=== PATIENT | female | born 1935 | race Caucasian/White ===

== ENCOUNTER 2019-12-07 09:41 | Observation (INO) | payer MEDICARE, MEDICAID, SELFPAY ==
[2019-12-07] VITALS (10 sets, daily range): BP systolic 102–137; BP diastolic 48–71; PULSE 66–86; RESP 12–18; TEMP 36.7–36.8; O2SAT 95–98; BMI 26.7
--- NOTE | 2019-12-07 | CT_ITS ---
EXAMINATION: CT HEAD W/O IV CONTRAST CT CERVICAL SPINE W/O IV CONTRAST CLINICAL INFORMATION: Syncope COMPARISON: Head CT from 02/11/2019. TECHNIQUE: Head - Contiguous axial imaging of the head was performed from the skull base to the vertex without the administration of intravenous contrast, and axial images are reconstructed at 2 mm and 5 mm slice thickness. Cervical spine - A volumetric, helical CT acquisition of the cervical spine was obtained without contrast; in addition to the standard set of axial images, multiplanar reformatted images were provided in the coronal and sagittal imaging planes. This CT examination was performed using dose optimization techniques as appropriate, variously including the following: *Automated exposure control *Adjustment of mA and/or kV according to patient size (this includes techniques or standardized protocols for targeted exams where dose is matched to indication/reason for exam; i.e. extremities or head) *Use of iterative reconstruction technique DLP: 673 mGy-cm for the head CT 310 mGy-cm for the cervical spine CT FINDINGS: HEAD: No intracranial hemorrhage, extra-axial fluid collection, focal mass effect or midline shift. The hoyt-white matter differentiation is maintained. No evidence of an acute major vascular territory infarction. Chronic small vessel ischemic changes of supratentorial white matter. Chronic, moderate atrophy of cerebral and cerebellar hemispheres with commensurate prominence of the ventricles and sulci. Atherosclerotic calcification of cavernous carotid arteries. The calvarium is intact. Mild, incomplete right mastoid effusion is noted. Otherwise, mastoid air cells are well-aerated. The visualized paranasal sinuses are clear. Incidentally noted is left-sided nasal septal deviation with left-sided septal spur. Lenses have been extracted from the globes of each orbit. Chronic arthritic deformity, old mandibular condylar erosions, of bilateral temporomandibular joints. CERVICAL SPINE: The cervical spine has normal curvature. No acute abnormalities. The craniocervical junction is normal. The occipital condyles, dens and atlantodental articulation are intact. Degenerative subarticular sclerosis and osseous spurring at the atlantodental articulation. The vertebral body heights are maintained. No fractures in the anterior or posterior elements. No prevertebral soft tissue swelling. Moderate degenerative disc disease of C5-C6 and severe degenerative disease of C6-C7. Minimal degenerative anterolisthesis of C6 on C7. Otherwise, cervical vertebra have normal alignment. 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 The facet joints are ankylosed on the left at C5-C6 and on the right at C2-C3. No significant stenosis of the central spinal canal. No spinal hematoma or focal fluid collection in the visualized neck. Thyroid gland is unremarkable. There is symmetric appearance of pleural-based scarring at lung apices. IMPRESSION: * No hemorrhage or other acute intracranial pathology compared to 02/11/2019. * Chronic small vessel ischemic changes of supratentorial white matter. * Chronic, diffuse atrophy of the cerebral and cerebellar hemispheres. * No fractures in the degenerated cervical spine.
--- NOTE | 2019-12-07 | XR_ITS ---
EXAMINATION: XR CHEST CLINICAL INFORMATION: Syncope COMPARISON: 02/11/2019 TECHNIQUE: 2 views of the chest were obtained. FINDINGS: Lungs are well-inflated and clear. No pulmonary edema, consolidation or pleural effusion. No pneumothorax. Cardiac silhouette is normal in size. The hilar contours are normal. Bones appear to be diffusely osteoporotic. IMPRESSION: No acute pulmonary disease.
--- NOTE | 2019-12-07 10:25 | PC.NURSE ---
SPOKE WITH DAUGHTER, AWILDA, WHO WITNESSED SYNCOPE. STATES PT WAS STANDING UP AT BATHROOM SINK CLEANING SELF OFF AFTER EPISODE OF DIARRHEA, AND PT SAID SHE FELT LIKE SHE WAS GOING TO FAINT; DAUGHTER THEN ASSISTED PT TO SITTING POSITION AND PT HAD BRIEF EPISODE OF PASSING OUT, EYES ROLLING BACK IN HEAD AND NOT RESPONDING FOR A FEW SECONDS TWICE. STATES PT WAS PALE AT TIME. PT DID NOT FALL OR HIT HEAD.
--- NOTE | 2019-12-07 10:30 | PC.NURSE ---
DAUGHTER, AWILDA SINGH [phone]
--- NOTE | 2019-12-07 10:32 | PC.NURSE ---
PT NOW AWAKE AND ALERT. ORIENTED TO SELF AND PLACE, NOT TO YEAR/MONTH; DAUGHTER STATES THIS IS BASELINE D/T DEMENTIA. NEUROS INTACT. SKIN WPD. REPSIRATIONS EVEN AND NON LABORED. DENIES ANY PAIN OR DISCOMFORT. NSR ON MONITOR. VSS. IV ACCESS IN PLACE. MARYJANE AREA, LEGS, FEET CLEANED OF LARGE AMOUNT OF BROWN SEMI-FORMED STOOL. (DAUGHTER STATES PT WAS INCONTINENT AND WAS ATTEMPTING TO WASH STOOL OFF WHEN SHE SYNCOPIZED. ) AWAITING INITIAL MD CHOPRA.
--- NOTE | 2019-12-07 10:42 | ECG_ITS ---
Test Reason : SYNCOPE Blood Pressure : / mmHG Vent. Rate : 069 BPM Atrial Rate : 069 BPM P-R Int : 178 ms QRS Dur : 088 ms QT Int : 394 ms P-R-T Axes : 014 -08 070 degrees QTc Int : 422 ms Normal sinus rhythm Left axis deviation Nonspecific T wave abnormality Abnormal ECG When compared with ECG of 11-FEB-2019 09:26, Nonspecific T wave abnormality now evident in Anterolateral leads Referred By: Chris Herrera Electronically Signed By:JOSHUA CARDENAS MD
--- NOTE | 2019-12-07 11:18 | PC.NURSE ---
PT'S DAUGHTER CALLED AND EXPRESSED CONCERN THAT SHE NO LONGER CAN TAKE CARE OF HER MOTHER AT HOME AND REQUESTING SHE BE PLACED AT A SNF IF MEDICALLY CLEARED.
[2019-12-07 11:26] LABS: MANUAL DIFF FLAG NO
[2019-12-07 11:29] LABS: Basophils Percent Auto 0.2 % (0-2); Eosinophils Absolute Auto 0.1 X10*3/uL (0.0-0.4); Eosinophils Percent Auto 0.8 % (0-4); Hematocrit 42.3 % (37-47); Imm Gran Abs Auto 0.02 X10*3/uL (0.00-0.03); Imm Gran Pct Auto 0.2 % (0.0-0.4); Lymphocytes Absolute Auto 1.2 X10*3/uL (1.2-4.9); Lymphocytes Percent Auto 13.4 % (20-40); Mean Corpuscular HGB Conc 33.1 g/dl (31.0-35.0); Mean Corpuscular Hemoglobin 33.3 pg (27.0-33.0); Mean Corpuscular Volume 100.5 fL (80-98); Mean Platelet Volume 11.2 fL (9.4-12.3); Monocytes Absolute Auto 0.6 X10*3/uL (0.1-1.2); Monocytes Percent Auto 6.7 % (2-11); Neutrophils Absolute Auto 7.1 X10*3/uL (2.0-8.3); Neutrophils Percent Auto 78.7 % (45-73); Platelet Count 193 X10*3/uL (160-400); Red Blood Count 4.21 X10*6/uL (4.20-5.50); Red Cell Distribution Width 12.5 % (11.0-16.0); White Blood Count 9.1 X10*3/uL (4.8-10.8)
[2019-12-07 11:48] LABS: Anion Gap 13 (12-20); Blood Urea Nitrogen 21 mg/dL (9-16); Calcium 8.9 mg/dL (8.4-10.2); Carbon Dioxide 25 mmol/L (22-29); Chloride 108 mmol/L (96-108); Creatinine Clr Calc Pharmacy 46.6; Estimated Glomerular Filt Rate 58; Glucose Random 99 mg/dL (60-115); Potassium 4.5 mmol/l (3.3-5.1); Sodium 141 mmol/L (135-145)
[2019-12-07 11:49] LABS: Alanine Aminotransferase 10 U/L (0-31); Albumin Level 4.1 g/dL (3.5-5.0); Alkaline Phosphatase 95 U/L (39-117); Aspartate Amino Transferase 13 U/L (5-31); Bilirubin Direct 0.3 mg/dL (0.0-0.5); Bilirubin Total 0.6 mg/dL (0.0-1.0); Magnesium 2.1 mg/dL (1.6-2.6); Total Protein 6.4 g/dL (6.5-8.0)
--- NOTE | 2019-12-07 11:50 | MHC.CM.ED ---
Patient came to ER due to syncope. Received notification from ROBERT Mathews that daughter, Lolly doesn't feel patient can safely be home any more. Spoke with Lolly via telephone via telephone at [phone]. Patient was discharged from [facility] on [address] in February. At that time, 24 hour care was recommended. Lolly has essentially been living with patient. Patient also receives 40 hours of home health aides through [facility] via [employer] and [facility] from [facility]. Lolly is requesting referral to [facility]. [facility]. ER work up is still pending.
[2019-12-07 11:56] LABS: Troponin-I High Sensitivity < 3.5 ng/L (<3.5-17.0)
--- NOTE | 2019-12-07 11:58 | MHC.CM.ED ---
[facility] doesnot have a bed available at this time. Referral being broadcasted in [facility]. Continue to monitor for d/c needs.
--- NOTE | 2019-12-07 15:21 | ED.SYNCOPE ---
HPI - Syncope General Chief Complaint: Syncope Stated Complaint: SYNCOPE Time Seen by Provider: 12/07/19 11:03 Source: patient and family (Daughter by phone with Nurse Bisi) Mode of arrival: ambulatory Limitations: altered mental status (dementia at baseline ) History of Present Illness HPI narrative: 84yoF c PMHx of dementia presenting to the ED via EMS after a Witnessed syncopal episode by daughter at home prior to arrival with loss of consciousness. No head injury. Currently on a baby aspirin no other blood thinners. Patient is a poor historian due to her baseline dementia therefore the nurse contacted the daughter and the daughter reported that the patient had an episode of incontinence and she was washing up at the sink when she told her daughter that she fell as she was about to pass out therefore the daughter helped her down to the ground and this is when her eyes rolled back and she lost consciousness for few seconds. The daughter called the ambulance and the patient had an another episode of syncope with LOC. No head injury. She was hypotensive for EMS at 70s over 40s. Otherwise the patient denies any additional complaints or concerns at this time. Daughter reports the patient is at baseline for her dementia. Related Data Home Medications Medication Instructions Recorded Confirmed aspirin 81 mg PO DAILY 12/07/19 12/07/19 cholecalciferol (vitamin D3) 25 mcg PO DAILY 12/07/19 12/07/19 [Vitamin D3] Allergies Allergy/AdvReac Type Severity Reaction Status Date / Time No Known Allergies Allergy Verified 12/07/19 10:00 [No Known Allergies*] Review of Systems Review of Systems: Yes all other systems are reviewed and are negative Constitutional: Constitutional: Reports as per HPI, Denies anorexia, Denies body ache(s), Denies chills, Denies excessive sweating, Denies fatigue, Denies fever(s), Denies frequent falls, Denies headache(s), Denies lethargy, Denies malaise, Denies night sweats, Denies poor appetite, Denies weakness, Denies weight gain and Denies weight loss Eyes: Eyes: Reports as per HPI, Denies blurry vision and Denies change in vision ENT: Reports as per HPI, Reports Normal hearing present, Denies dizziness, Denies headache(s) and Denies neck pain Cardiovascular: Cardiovascular: Reports as per HPI, Denies chest pain, Denies chest pain at rest, Denies chest pain with activity, Denies diaphoresis, Reports syncope, Denies rapid heart rate, Denies pedal edema, Denies edema, Denies irregular heart rhythm, Denies claudication, Reports lightheadedness, Reports Loss of Consciousness, Denies radiating jaw, neck or arm pain, Denies palpitations, Denies dyspnea, Denies dyspnea on exertion, Denies orthopnea and Denies paroxysmal nocturnal dyspnea Respiratory: Respiratory: Reports as per HPI, Denies cough, Denies dyspnea and Denies dyspnea on exertion Gastrointestinal: Gastrointestinal: Reports as per HPI, Denies abdominal pain, Denies melena, Denies hematochezia, Denies coffee ground emesis, Denies constipation, Denies heartburn, Denies diarrhea, Denies loose stools, Denies nausea, Denies vomiting and Denies hematemesis Genitourinary: Genitourinary: Reports as per HPI, Denies hematuria, Denies urinary frequency, Denies genital lesions, Denies dysuria, Denies flank pain, Denies urinary hesitancy and Denies urinary urgency Musculoskeletal: Musculoskeletal: Reports as per HPI, Denies neck pain, Denies numbness and Denies tingling Integumentary/Breasts: Skin/Breast: Reports as per HPI Neurologic: Reports as per HPI, Reports Normal hearing present, Reports confusion (at baseline per daughter due to dementia ), Denies dizziness, Reports syncope, Denies frequent falls, Denies headache(s), Denies focal weakness, Denies numbness, Denies convulsions, Denies seizure-like activity, Denies Sensory deficit (Neuro), Denies tingling, Denies paresthesias and Denies weakness Psychiatric: Psychiatric: Reports as per HPI and Reports confusion (at baseline per daughter due to dementia ) Endocrine: Endocrine: Reports as per HPI, Denies excessive sweating, Denies fatigue and Denies palpitations Hematologic/Lymphatic: Hematologic/Lymphatic: Reports as per HPI Allergic/Immunologic: Allergic/Immunologic: Reports as per HPI [facility] Past Medical History Attestation statement: The following information was validated with the patient. Medical History (Updated 12/07/19 @ 17:34 by Kassie Burns NP) Dementia Right shoulder injury Social History Social History Alcohol intake: former Smoking Status: Former smoker Smoked in Last 30 Days: No Use of substances other than those prescribed or required for medical reasons: No Advance Directives: No Advance Directives Information Provided: Yes Physical Exam Vital Signs: Vital Signs: Vital Signs Temp Pulse Resp BP Pulse Ox 12/07/19 13:50 86 133/53 L 12/07/19 13:47 83 134/71 12/07/19 13:46 71 122/59 L 12/07/19 12:33 98.1 F 74 18 119/53 L 97 12/07/19 10:10 97 12/07/19 10:01 98.0 F 69 16 116/48 L 97 Body Mass Index 26.7 Const: General: cooperative, healthy appearing, comfortable, no acute distress, well developed, alert, awake, Physically active and confusion (at baseline per daughter due to dementia ) Nutritional Appearance: average body habitus and well nourished Orientation/consciousness: oriented to person, oriented to place, No oriented to time and confusion (at baseline per daughter due to dementia ) Limitations: altered mental status (dementia ) HENMT: Head: Yes normal to inspection, Yes No palpable skull fracture present, Yes normocephalic and Yes atraumatic Ears: hearing grossly normal bilaterally General nose exam: Normal external nose present Face and sinus: Yes normal facial exam Mouth: moist mucous membranes Eyes: General: appearance normal, both eyes and all related structures Visual Bennett: normal visual bennett by confrontation Alignment and Position: alignment normal Periorbital: periorbital findings normal Eyelids: Yes eyelids normal Conjunctivae: conjunctivae normal Sclerae: sclerae normal Pupils: Equal, round and reactive pupils present EOM: EOMs intact bilaterally Neck: Neck: Yes normal visual inspection, Yes full ROM, Yes no lymphadenopathy, Yes no meningeal signs, Yes trachea midline and Yes supple Chest: Chest palpation & inspection: normal inspection of the chest Resp: Effort & Inspection: normal respiratory effort and able to speak in complete sentences Auscultation: clear to auscultation bilaterally, no crackles, no rales, no rhonchi and no wheezes Cardio: Rate: regular rate Rhythm: regular rhythm Heart sounds: S1 normal heart sound present and S2 normal heart sound present Peripheral pulses: Peripheral pulses 2+ throughout GI: Inspection: Yes normal to inspection Palpation (GI): Soft to palpation, nontender and No hepatosplenomegaly present Percussion: Yes normal to percussion Auscultation: normal bowel sounds : General: Yes no CVA tenderness Back/Spine/Pelvis: Back: no CVA tenderness Cervical Spine: normal cervical lordosis and cervical ROM normal Thoracic/Lumbar Spine: thoracic and lumbar spine normal to inspection and thoraco-lumbar ROM normal Skin: General skin exam: no rashes or lesions noted, elasticity normal and turgor normal Trauma: no lacerations or abrasions Wounds: no wounds Hair: normal Nails: normal Neuro: General: oriented to person, oriented to place, No oriented to time, gait normal, tone normal, moves all extremities, Normal light touch and pain sensation, no meningeal signs, no focal motor deficits, CN's II-XI intact bilaterally, normal sensation to monofilament and confusion (at baseline per daughter due to dementia ) Cranial nerves: Yes CN's II-XII intact bilaterally, Yes Facial sensation intact/muscles of mastication intact, Yes Intact sense of smell present, Yes Equal, round and reactive pupils present, Yes Normal accommodation reflex present, Yes Bilaterally intact EOM present, Yes Nystagmus not present, Yes Normal facial strength present, Yes Midline tongue present, Yes Normal gag reflex present, Yes Symmetric palate elevation present, Yes Normal hearing present, Yes Ability to bilaterally rotate head present and Yes Ability to bilaterally elevate shoulders present Cognition (Neuro): normal cognition Gait exam (Neuro): Normal gait present Motor exam (neuro): 5/5 motor strength present throughout, Pronator motor function not present, no tremor noted, no asterixis, Motor fasciculations not present, Normal motor muscle tone present throughout and Motor abnormalities not present Sensory Exam: Normal double simultaneous stimulation for sensation; No Sensory deficit (Neuro) Coordination: [id number] test normal and [id number] test normal Comatose Patient: corneal reflex present Extrem: General: Yes normal to inspection, Yes full ROM, Yes capillary refill normal, Yes no clubbing, cyanosis or edema, No no pedal edema, No no calf tenderness, Yes normal gait and No edema Right upper extremity: normal to inspection, full ROM and normal capillary refill; no edema Left upper extremity: normal to inspection, full ROM and normal capillary refill; no edema Right lower extremity: normal to inspection, full ROM and normal capillary refill; no edema Left lower extremity: normal to inspection, full ROM and normal capillary refill; no edema Psych: Appearance: grossly normal and well kempt Mental Status: mental status grossly normal Speech and movement: Normal speech and movement present and Clear speech present Affect: normal affect Attitude: cooperative Thought process: Normal thought process present Thought content: Normal thought content present Insight: Good insight present (Psych) Judgement: Good judgement present (Psych) Course Course Course Narrative: 84yoF c PMHx of dementia presenting to the ED via EMS after a Witnessed syncopal episode by daughter at home prior to arrival with loss of consciousness. No head injury. Currently on a baby aspirin no other blood thinners. Patient is a poor historian due to her baseline dementia therefore the nurse contacted the daughter and the daughter reported that the patient had an episode of incontinence and she was washing up at the sink when she told her daughter that she fell as she was about to pass out therefore the daughter helped her down to the ground and this is when her eyes rolled back and she lost consciousness for few seconds. The daughter called the ambulance and the patient had an another episode of syncope with LOC. No head injury. She was hypotensive for EMS at 70s over 40s. Otherwise the patient denies any additional complaints or concerns at this time. Daughter reports the patient is at baseline for her dementia. - Concer for CVA vs ACS vs Vasovagal vs orthostatic hypotension vs electrolyte abnormality - Plan: Labs, CT scan of brain/cervical spine, CXR, EKG, UA, orthostatic vitals. Then re-evaluate. Reevaluation(s) Reevaluation #1: - All labs within normal limits. Orthostatic vitals within normal limits. EKG normal sinus rhythm no acute ischemic changes noted. Chest x-ray within normal limits no acute processes noted. - Will plan to admit for syncopy of unknown cause Patient understands agrees with this plan. MDM - Syncope Medical Records Attestation: I reviewed the patient's medical records. Lab Data Attestation: I reviewed the patient's lab results. Result diagrams: 12/07/19 11:20 12/07/19 11:21 Labs: Lab Results 12/07/19 12/07/19 12/07/19 Range/Units 11:20 11:20 11:20 WBC 9.1 (4.8-10.8) X10*3/uL RBC 4.21 (4.20-5.50) X10*6/uL Hgb 14.0 (12.0-16.0) g/dl Hct 42.3 (37-47) % MCV 100.5 H (80-98) fL MCH 33.3 H (27.0-33.0) pg MCHC 33.1 (31.0-35.0) g/dl RDW 12.5 (11.0-16.0) % Plt Count 193 (160-400) X10*3/uL MPV 11.2 (9.4-12.3) fL Immature Gran % (Auto) 0.2 (0.0-0.4) % Neut % (Auto) 78.7 H (45-73) % Lymph % (Auto) 13.4 L (20-40) % [place] % (Auto) 6.7 (2-11) % Eos % (Auto) 0.8 (0-4) % Baso % (Auto) 0.2 (0-2) % Lymph # (Auto) 1.2 (1.2-4.9) X10*3/uL [place] # (Auto) 0.6 (0.1-1.2) X10*3/uL Eos # (Auto) 0.1 (0.0-0.4) X10*3/uL Baso # (Auto) 0.0 (0.0-0.2) X10*3/uL Abs Immat Gran (auto) 0.02 (0.00-0.03) X10*3/uL Absolute Neuts (auto) 7.1 (2.0-8.3) X10*3/uL Absolute Nucleated RBC 0.000 (0.0-0.012) X10*3/uL Nucleated RBC % (auto) 0.0 (0.0-0.2) /100WBC Hold Blue Top SEE NOTE Sodium (135-145) mmol/L Potassium (3.3-5.1) mmol/l Chloride (96-108) mmol/L Carbon Dioxide (22-29) mmol/L Anion Gap (12-20) BUN (9-16) mg/dL Creatinine (0.5-1.4) mg/dL Estim Creat Clear Calc Estimated GFR Random Glucose (60-115) mg/dL Calcium (8.4-10.2) mg/dL Magnesium (1.6-2.6) mg/dL Total Bilirubin (0.0-1.0) mg/dL Direct Bilirubin (0.0-0.5) mg/dL AST (5-31) U/L ALT (0-31) U/L Alkaline Phosphatase (39-117) U/L Troponin I High Sens < 3.5 (<3.5-17.0) ng/L Total Protein (6.5-8.0) g/dL Albumin (3.5-5.0) g/dL 12/07/19 12/07/19 Range/Units 11:21 11:21 WBC (4.8-10.8) X10*3/uL RBC (4.20-5.50) X10*6/uL Hgb (12.0-16.0) g/dl Hct (37-47) % MCV (80-98) fL MCH (27.0-33.0) pg MCHC (31.0-35.0) g/dl RDW (11.0-16.0) % Plt Count (160-400) X10*3/uL MPV (9.4-12.3) fL Immature Gran % (Auto) (0.0-0.4) % Neut % (Auto) (45-73) % Lymph % (Auto) (20-40) % [place] % (Auto) (2-11) % Eos % (Auto) (0-4) % Baso % (Auto) (0-2) % Lymph # (Auto) (1.2-4.9) X10*3/uL [place] # (Auto) (0.1-1.2) X10*3/uL Eos # (Auto) (0.0-0.4) X10*3/uL Baso # (Auto) (0.0-0.2) X10*3/uL Abs Immat Gran (auto) (0.00-0.03) X10*3/uL Absolute Neuts (auto) (2.0-8.3) X10*3/uL Absolute Nucleated RBC (0.0-0.012) X10*3/uL Nucleated RBC % (auto) (0.0-0.2) /100WBC Hold Blue Top Sodium 141 (135-145) mmol/L Potassium 4.5 (3.3-5.1) mmol/l Chloride 108 (96-108) mmol/L Carbon Dioxide 25 (22-29) mmol/L Anion Gap 13 (12-20) BUN 21 H (9-16) mg/dL Creatinine 0.93 (0.5-1.4) mg/dL Estim Creat Clear Calc 46.6 Estimated GFR 58 Random Glucose 99 (60-115) mg/dL Calcium 8.9 (8.4-10.2) mg/dL Magnesium 2.1 (1.6-2.6) mg/dL Total Bilirubin 0.6 (0.0-1.0) mg/dL Direct Bilirubin 0.3 (0.0-0.5) mg/dL AST 13 (5-31) U/L ALT 10 (0-31) U/L Alkaline Phosphatase 95 (39-117) U/L Troponin I High Sens (<3.5-17.0) ng/L Total Protein 6.4 L (6.5-8.0) g/dL Albumin 4.1 (3.5-5.0) g/dL ECG Data Attestation: I personally reviewed and interpreted this ECG as follows: ECG interpretation date: 12/07/19 ECG interpretation time: 11:05 Prior ECG tracings: available for review Interpretation: normal sinus rhythm with a ventricular rate of 69 with a normal OK interval and normal QRS duration and a normal QT/ QTC interval. Similar compared to prior in 02/11/2019. No acute ischemic changes noted.
--- NOTE | 2019-12-07 15:37 | P.HPIM_ITS ---
History of Present Illness Date of Service: 12/07/19 <Kassie Burns NP - Last Filed: 12/08/19 12:22> Chief Complaint: Syncope <Kassie Burns NP - Last Filed: 12/08/19 12:22> 84 year old women presenting from home after an episode of syncope. She was standing in front of the sink in the bathroom washing up with her daughter and suddenly lost control of bowels told her daughter she felt weak. Her da ughter was able to lower the patient to the floor. While the patient was on the ground apparently she lost consciousness. patient denies that she had any symptoms. She was mildly vague. head CT was negative for any acute abnormality. Chest x-ray in cervical spine CT were both negative as well. Her vital signs were stable, orthostatic blood pressure normal. EKG showed normal sinus rhythm. She is resting in bed, will placed on observation for further management treatment of syncope. <Kassie Burns NP - Last Filed: 12/08/19 12:22> Review of Systems Review of Systems: Denies any recent fever chills or decrease in appetite respiratory denies any shortness of breath coverage production cardiovascular is adjustment of any PND or edema gastrointestinal denies any dysphagia abdominal pain nausea vomiting or diarrhea genitourinary denies any dysuria frequency or hematuria musculoskeletal denies any joint pain or swelling neuropsych denies any weakness or seizures all other systems reviewed are negative <Kassie Burns NP - Last Filed: 12/08/19 12:22> [facility] Medical History: Medical History (Updated 12/10/19 @ 12:48 by Jairon Henry MD) Dementia Right shoulder injury Syncope and collapse <Kassie Burns NP - Last Filed: 12/08/19 12:22> Social History: Social History Alcohol intake: former Smoking Status: Former smoker Tobacco Type: Cigarette Advance Directives Date on File: 02/07/05 service: No Current occupational status: retired <Kassie Burns NP - Last Filed: 12/08/19 12:22> Meds Allergies/Adverse reactions: Allergies Allergy/AdvReac Type Severity Reaction Status Date / Time No Known Allergies Allergy Verified 12/07/19 10:00 [No Known Allergies*] <Kassie Burns NP - Last Filed: 12/08/19 12:22> Home medications: Home Medications Medication Instructions Recorded Confirmed Type aspirin 81 mg PO DAILY 12/07/19 12/07/19 History cholecalciferol (vitamin D3) 25 mcg PO DAILY 12/07/19 12/07/19 History [Vitamin D3] <Kassie Burns NP - Last Filed: 12/08/19 12:22> Physical Exam Vital Signs and Narrative: Vital Signs: Last Vital Signs Temp 98.1 F 12/07/19 12:33 Pulse 86 12/07/19 13:50 Resp 18 12/07/19 12:33 BP 133/53 L 12/07/19 13:50 Pulse Ox 97 12/07/19 12:33 Body Mass Index 26.7 <Kassie Burns NP - Last Filed: 12/08/19 12:22> Appearing in no acute distress head is normocephalic atraumatic eyes pupils are PERRLA sclera is anicteric mouth throat mucous membranes are intact and moist neck is supple no lymphadenopathy, no JVD noted lung sounds are clear to auscultation heart regular rate rhythm, clear S1, S2 positive bowel sounds, abdomen is soft, nontender neuro patient is alert x3, no focal deficits <Kassie Burns NP - Last Filed: 12/08/19 12:22> Results Labs Labs: Laboratory Tests 12/07/19 12/07/19 12/07/19 11:20 11:20 11:20 WBC 9.1 RBC 4.21 Hgb 14.0 Hct 42.3 MCV 100.5 H MCH 33.3 H MCHC 33.1 RDW 12.5 Plt Count 193 MPV 11.2 Immature Gran % (Auto) 0.2 Neut % (Auto) 78.7 H Lymph % (Auto) 13.4 L [place] % (Auto) 6.7 Eos % (Auto) 0.8 Baso % (Auto) 0.2 Lymph # (Auto) 1.2 [place] # (Auto) 0.6 Eos # (Auto) 0.1 Baso # (Auto) 0.0 Abs Immat Gran (auto) 0.02 Absolute Neuts (auto) 7.1 Absolute Nucleated RBC 0.000 Nucleated RBC % (auto) 0.0 Hold Blue Top SEE NOTE Sodium Potassium Chloride Carbon Dioxide Anion Gap BUN Creatinine Estim Creat Clear Calc Estimated GFR Random Glucose Calcium Magnesium Total Bilirubin Direct Bilirubin AST ALT Alkaline Phosphatase Troponin I High Sens < 3.5 Total Protein Albumin 12/07/19 12/07/19 11:21 11:21 WBC RBC Hgb Hct MCV MCH MCHC RDW Plt Count MPV Immature Gran % (Auto) Neut % (Auto) Lymph % (Auto) [place] % (Auto) Eos % (Auto) Baso % (Auto) Lymph # (Auto) [place] # (Auto) Eos # (Auto) Baso # (Auto) Abs Immat Gran (auto) Absolute Neuts (auto) Absolute Nucleated RBC Nucleated RBC % (auto) Hold Blue Top Sodium 141 Potassium 4.5 Chloride 108 Carbon Dioxide 25 Anion Gap 13 BUN 21 H Creatinine 0.93 Estim Creat Clear Calc 46.6 Estimated GFR 58 Random Glucose 99 Calcium 8.9 Magnesium 2.1 Total Bilirubin 0.6 Direct Bilirubin 0.3 AST 13 ALT 10 Alkaline Phosphatase 95 Troponin I High Sens Total Protein 6.4 L Albumin 4.1 <Kassie Burns NP - Last Filed: 12/08/19 12:22> Assessment and Plan (1) Dementia: Problem details: baseline dementia. CT scan shows age-related atrophy and microvascular disease. Recommend checking thyroid profile, B12 and folate levels <Kassie Burns NP - Last Filed: 12/08/19 12:22> Status: Acute <Kassie Burns NP - Last Filed: 12/08/19 12:22> (2) Syncope: Status: Acute <Kassie Burns NP - Last Filed: 12/08/19 12:22> 84 year old women admitted after an episode of possible syncope. Possibly orthostasis vs vasovagal. She has no significant other medical problems other than dementia. Orthostatic hypotension. Had syncopal episode at home. Will place on telemetry monitoring. Neuro checks. Check orthostatic blood pressures daily. DVT prophylaxis with heparin Case discussed with Dr. Lee Full code <Kassie Burns NP - Last Filed: 12/08/19 12:22>
--- NOTE | 2019-12-07 16:00 | PC.NURSE ---
Recieved female patient presently resting. no noted distress. skin pwd. rr even and unlabored. seen by hospitalist. patient to be admitted. daughter made aware
--- NOTE | 2019-12-07 16:26 | MHC.CM.ED ---
Received telephone call from patient's daughter Lolly. She can be reached at [phone]. She understands [facility] isn't able to offer a bed at this time. [facility] choice. Continue to monitor for d/c needs.
--- NOTE | 2019-12-07 19:24 | PM.EVENT ---
Event Note Event Note: patient is seen and examined labs imaging , ekg reviewed patient seems like came with syncopal episode , denies any chest pain or sob or dizziness physical exam and assesment and plan coordinated in apc's note. ? vasovagal vs orthostasis moniter on tele hollter was fine few years back echo in 2013 seems fine cardio eval in am.
[2019-12-07] MEDS: 0.9 % Sodium Chloride Flush 3 ML SYRINGE IVFLUSH (21:42)
[2019-12-08] VITALS (7 sets, daily range): BP systolic 100–144; BP diastolic 49–78; PULSE 70–81; RESP 18–20; TEMP 36.1–36.8; O2SAT 94–97
[2019-12-08] MEDS: 0.9 % Sodium Chloride Flush 3 ML SYRINGE IVFLUSH ×3 (01:42→15:24)
[2019-12-08 07:55] LABS: MANUAL DIFF FLAG NO
[2019-12-08 08:11] LABS: Basophils Percent Auto 0.5 % (0-2); Eosinophils Absolute Auto 0.2 X10*3/uL (0.0-0.4); Eosinophils Percent Auto 3.4 % (0-4); Hematocrit 39.4 % (37-47); Imm Gran Abs Auto 0.02 X10*3/uL (0.00-0.03); Imm Gran Pct Auto 0.3 % (0.0-0.4); Lymphocytes Percent Auto 32.1 % (20-40); Mean Corpuscular Hemoglobin 33.1 pg (27.0-33.0); Mean Corpuscular Volume 100.3 fL (80-98); Mean Platelet Volume 11.7 fL (9.4-12.3); Monocytes Absolute Auto 0.6 X10*3/uL (0.1-1.2); Monocytes Percent Auto 9.7 % (2-11); Neutrophils Absolute Auto 3.3 X10*3/uL (2.0-8.3); Platelet Count 195 X10*3/uL (160-400); Red Blood Count 3.93 X10*6/uL (4.20-5.50); Red Cell Distribution Width 12.2 % (11.0-16.0); White Blood Count 6.2 X10*3/uL (4.8-10.8)
[2019-12-08 08:32] LABS: Anion Gap 14 (12-20); Blood Urea Nitrogen 17 mg/dL (9-16); Calcium 8.7 mg/dL (8.4-10.2); Carbon Dioxide 24 mmol/L (22-29); Chloride 107 mmol/L (96-108); Creatinine Clr Calc Pharmacy 51.6; Estimated Glomerular Filt Rate > 60; Glucose Random 80 mg/dL (60-115); Potassium 3.9 mmol/l (3.3-5.1); Sodium 141 mmol/L (135-145)
[2019-12-08] MEDS: Cholecalciferol (Vitamin D3) 25 MCG TABLET PO (08:45)
[2019-12-08] MEDS: Aspirin 81 MG TAB.CHEW PO (08:45)
--- NOTE | 2019-12-08 10:25 | MHC.CM.PN ---
Call placed to patient's daughter in attempt at interview. Message left w/request for return call. CM to follow.
--- NOTE | 2019-12-08 10:47 | MHC.CM.PN ---
Met w/patient; very pleasant; she was AxO to self only. Interview unable to continue as information she was attempting to supply CM with, was unreliable. Will attempt to re-approach her daughter. CM to follow.
--- NOTE | 2019-12-08 10:51 | MHC.CM.PN ---
Attempted to call daughter again and reached voicemail again. Will watch for return call from daughter. CM to follow.
--- NOTE | 2019-12-08 12:07 | MHC.CM.PN ---
Lolly/daughter called back and compelted interview with CM. States patient cannot return home as she can no longer care for her. Lolly requesting LTC in a SNF for patient. [facility] choice. This CM reviewed all previously referred Centers w/Lolly and Lolly had this CM cancel some of the active referrals following some of her own research. Please see allscripts for cancelled referrals. Lolly requesting CM [place] back around with her for Centers willing to accept her mother if [facility] unable to accommodate. Lolly has agreed to bring a copy of the HCP and POA in for [facility] records. Patient previosuly lived in a mobile home with Lolly and owns a walker and a cane. Patient has not driven since 2017, daughter drives her to appointments. Plan is LTC in a SNF. CONTRERAS form reviewed w/Lolly and copy left in patient's room per request of oLlly. CM to follow.
--- NOTE | 2019-12-08 12:14 | P.CONCA_ITS ---
History of Present Illness History of Present Illness Date of Consult: December 08, 2019 Requesting physician: Trent Perkins Chief complaint: SYNCOPE Narrative: This is a cardiology consultation regarding a syncopal episode. She was apparently standing in front of the sink in the bathroom washing up with her daughter and she has only lost control of her bowels and told her daughter that she was weak. Her daughter was able to lower the patient to the floor. While the patient was on the ground, apparently she lost Consciousness . Patient herself is not really able to explain any further at this time. Otherwise, she denies any angina or shortness of breath or any other cardiac symptoms at this time. Review of Systems Review of Systems: Cardiac- positive for syncope. Negative for angina or shortness of breath or palpitations or leg swelling. Remainder of the 10 system review is negative PMFSH Past Medical History Medical History Dementia Right shoulder injury Family History Pertinent family history: Patient is unable to give any information. Social History Social History Alcohol intake: former Smoking Status: Former smoker Tobacco Type: Cigarette Smoked in Last 30 Days: No Use of substances other than those prescribed or required for medical reasons: No Advance Directives: No Advance Directives Information Provided: Yes service: No Current occupational status: retired [employer] Allergies Allergy/AdvReac Type Severity Reaction Status Date / Time No Known Allergies Allergy Verified 12/07/19 10:00 [No Known Allergies*] Home Medications Medication Instructions Recorded Confirmed Type aspirin 81 mg PO DAILY 12/07/19 12/07/19 History cholecalciferol (vitamin D3) 25 mcg PO DAILY 12/07/19 12/07/19 History [Vitamin D3] Physical Exam Vital Signs: Vital Signs: Vital Signs Temp Pulse Resp BP Pulse Ox 12/08/19 10:53 97.1 F 77 20 100/71 94 12/08/19 07:53 70 144/62 H 12/08/19 07:05 97 F 70 20 119/65 95 12/08/19 03:41 97.5 F 71 19 113/78 94 12/07/19 23:17 98.0 F 74 18 133/65 95 12/07/19 21:30 98.3 F 76 18 120/59 L 96 10/10/20 20:26 98.2 F 70 18 117/70 97 12/07/19 16:57 98.3 F 71 12 137/51 L 96 12/07/19 13:50 86 133/53 L 12/07/19 13:47 83 134/71 12/07/19 13:46 71 122/59 L 12/07/19 12:33 98.1 F 74 18 119/53 L 97 Body Mass Index 26.7 Comfortable, no distress No pallor, icterus or cyanosis HEENT -unremarkable JVD- normal Cardiac- normal heart sounds, no murmurs, gallops or rubs, normal PMI Respiratory-normal breath sounds bilaterally, no crackles, no wheeze Abdomen- soft, nontender Neuro- alert and oriented Lower extremities- no significant edema, warm well perfused Results Labs and Meds Result diagrams: 12/08/19 06:22 12/08/19 06:22 Lab results: Laboratory Results - last 24 hr 12/08/19 12/08/19 06:22 06:22 WBC 6.2 RBC 3.93 L Hgb 13.0 Hct 39.4 MCV 100.3 H MCH 33.1 H MCHC 33.0 RDW 12.2 Plt Count 195 MPV 11.7 Immature Gran % (Auto) 0.3 Neut % (Auto) 54.0 Lymph % (Auto) 32.1 [place] % (Auto) 9.7 Eos % (Auto) 3.4 Baso % (Auto) 0.5 Lymph # (Auto) 2.0 [place] # (Auto) 0.6 Eos # (Auto) 0.2 Baso # (Auto) 0.0 Abs Immat Gran (auto) 0.02 Absolute Neuts (auto) 3.3 Absolute Nucleated RBC 0.000 Nucleated RBC % (auto) 0.0 Sodium 141 Potassium 3.9 Chloride 107 Carbon Dioxide 24 Anion Gap 14 BUN 17 H Creatinine 0.84 Estim Creat Clear Calc 51.6 Estimated GFR > 60 Random Glucose 80 Calcium 8.7 EKG Interpretation EKG Comments: EKG reviewed. Underlying rhythm is sinus 69/Min. Nonspecific ST-T changes. Overall, similar to prior. Telemetry is unremarkable. No Significant pauses or tachycardia. Assessment and Plan (1) Syncope and collapse: Status: Acute Orthostatic blood pressures are negative. EKG and telemetry are unremarkable at this time. Echocardiogram from last year shows normal LVEF at 60-65% and otherwise unremarkable. It seems she had somewhat of similar event last year when she was thought to have seizure?. At this time, no clear cardiac explanation for her symptoms. Can consider outpatient event monitoring.
--- NOTE | 2019-12-08 14:17 | HO.PM.IMPN ---
Subjective Subjective Date of Service: 12/08/19 Interval History: syncope unclear etiology Review of Systems patient denies any chest pain or shortness of breath or abdominal pain or fever or chills. Physical Exam Vital Signs: Vital Signs: Vital Signs Temp Pulse Resp BP Pulse Ox 12/08/19 10:53 97.1 F 77 20 100/71 94 12/08/19 07:53 70 144/62 H 12/08/19 07:05 97 F 70 20 119/65 95 12/08/19 03:41 97.5 F 71 19 113/78 94 12/07/19 23:17 98.0 F 74 18 133/65 95 12/07/19 21:30 98.3 F 76 18 120/59 L 96 12/07/19 20:26 98.2 F 70 18 117/70 97 12/07/19 16:57 98.3 F 71 12 137/51 L 96 Body Mass Index 26.7 Physical exam: Cvs: rrr, [id number] , no murmur res: clear to auscultation ,no rhonchii or wheezing abd: no rebound or guarding ,nt, bs present. ext pulses present , no cyanosis neuro: axo3 , nonfocal. Objective Data Current Medications Generic Name Dose Route Start Last Admin Trade Name Freq PRN Reason Stop Dose Admin Acetaminophen 650 mg 12/07/19 21:30 Acetaminophen 650 Mg Supp.Rect NV Q6H PRN Pain, Mild (Pain Scale 1-3) Aspirin 81 mg 12/08/19 09:00 12/08/19 08:45 Aspirin 81 Mg Tab.Chew PO 81 mg DAILY [facility] Administration Pharmacy Consult 1 each 12/07/19 15:33 Consult Rx Perform Med Rec MISCELLANE ONCE PRN Consult order Sodium Chloride 3 ml 12/07/19 21:30 12/08/19 08:46 0.9 % Sodium Chloride Flush 3 Ml Syringe IVFLUSH 3 ml QSHIFT [facility] Administration Vitamin D 25 mcg 12/08/19 09:00 12/08/19 08:45 Cholecalciferol (Vitamin D3) 25 Mcg Tablet PO 25 mcg DAILY [facility] Administration Labs CBC & Chem 7: 12/08/19 06:22 12/08/19 06:22 Assessment and Plan (1) Syncope and collapse: Status: Acute (2) Dementia: Status: Acute (3) Syncope: Status: Acute Assessment and Plan: 1.84 year old women admitted after an episode of possible syncope. Possibly orthostasis vs vasovagal. She has no significant other medical problems other than dementia. 1. Syncope unclear etiology question neurocardiogenic patient seen by Cardiology: telemetry seems fine Echocardiogram from last year shows normal LVEF at 60-65% and otherwise unremarkable. seen by cardiology -patient has similar event in the past question of seizure was brought up ,we will consider neurology evaluation. 2. Deemntia : supportive care . DVT prophylaxis with heparin
--- NOTE | 2019-12-08 18:02 | P.CNNE_ITS ---
History of Present Illness Data of Consult Primary Care Provider: Unknown Physician HPI Reason for consult: syncopal episode and baseline dementia this is a 84-year-old woman who lives independently and is frequently visited by her daughter. She was apparently standing in the kitchen and suddenly became weak and collapsed to the floor in the presence of her daughter. She may have passed out but it is unclear. There is some report of bowel incontinence however, the patient denies this but is not a reliable historian because of her dementia. When asked how long she was out she says overall it was less than a day. She says she has had a syncopal episode many years ago. She denied any chest pain or palpitation. There was no seizure activity reported. There was no tongue biting and she appears to be base line at this point Review of Systems Constitutional: Constitutional: Denies frequent falls, Denies headache(s) and Denies weakness Eyes: Eyes: Reports no additional eye complaints ENT: Reports Normal hearing present, Denies dizziness and Denies headache(s) Cardiovascular: Cardiovascular: Reports syncope Respiratory: Respiratory: Reports no additional respiratory complaints Gastrointestinal: Gastrointestinal: Reports no additional gastrointestinal complaints Musculoskeletal: Musculoskeletal: Denies numbness and Denies tingling Integumentary/Breasts: Skin/Breast: Reports system reviewed and no additional complaints, except as docu Neurologic: Reports as per HPI, Reports Normal hearing present, Reports confusion (at baseline per daughter due to dementia ), Denies dizziness, Reports syncope, Denies frequent falls, Denies headache(s), Denies focal weakness, Denies numbness, Denies convulsions, Denies seizure-like activity, Denies Sensory deficit (Neuro), Denies tingling, Denies paresthesias and Denies weakness Psychiatric: Psychiatric: Reports confusion (at baseline per daughter due to dementia ) Endocrine: Endocrine: Reports no additional endocrine complaints Hematologic/Lymphatic: Hematologic/Lymphatic: Reports no additional hematologic/lymphatic complaints Allergic/Immunologic: Allergic/Immunologic: Reports no additional allerg ic/immunologic complaints [facility] Past Medical History Medical History (Updated 12/08/19 @ 18:05 by Oni Valles MD) Dementia Right shoulder injury Syncope and collapse Family History Pertinent family history: Patient is unable to give any information. Social History Social History Alcohol intake: former Smoking Status: Former smoker Tobacco Type: Cigarette Smoked in Last 30 Days: No Use of substances other than those prescribed or required for medical reasons: No Advance Directives: No Advance Directives Information Provided: Yes service: No Current occupational status: retired Meds Allergies Allergy/AdvReac Type Severity Reaction Status Date / Time No Known Allergies Allergy Verified 12/07/19 10:00 [No Known Allergies*] Home Medications Medication Instructions Recorded Confirmed Type aspirin 81 mg PO DAILY 12/07/19 12/07/19 History cholecalciferol (vitamin D3) 25 mcg PO DAILY 12/07/19 12/07/19 History [Vitamin D3] Physical Exam Vital Signs: Vital Signs: Vital Signs Temp Pulse Resp BP Pulse Ox 12/08/19 15:01 98.2 F 75 18 107/49 L 94 12/08/19 10:53 97.1 F 77 20 100/71 94 12/08/19 07:53 70 144/62 H 12/08/19 07:05 97 F 70 20 119/65 95 12/08/19 03:41 97.5 F 71 19 113/78 94 12/07/19 23:17 98.0 F 74 18 133/65 95 12/07/19 21:30 98.3 F 76 18 120/59 L 96 12/07/19 20:26 98.2 F 70 18 117/70 97 Body Mass Index 26.7 Physical exam: Cvs: rrr, [id number] , no murmur res: clear to auscultation ,no rhonchii or wheezing abd: no rebound or guarding ,nt, bs present. ext pulses present , no cyanosis neuro: axo3 , nonfocal. Const: General: confusion (at baseline per daughter due to dementia ) Nutritional Appearance: average body habitus and well nourished Orientation/consciousness: confusion (at baseline per daughter due to dementia ) Limitations: altered mental status (dementia ) HENMT: Head: Yes normal to inspection, Yes No palpable skull fracture present, Yes normocephalic and Yes atraumatic Ears: hearing grossly normal bilaterally General nose exam: Normal external nose present Face and sinus: Yes normal facial exam Mouth: moist mucous membranes Eyes: General: appearance normal, both eyes and all related structures Visual Kwong: normal visual kwong by confrontation Alignment and Position: alignment normal Periorbital: periorbital findings normal Eyelids: Yes eyelids normal Conjunctivae: conjunctivae normal Sclerae: sclerae normal Corneas: corneas normal Pupils: Equal, round and reactive pupils present EOM: EOMs intact bilaterally Direct Ophthalmoscopy: normal light reflex Neck: Neck: Yes normal visual inspection, Yes full ROM, Yes no lymphadenopathy, Yes no meningeal signs, Yes trachea midline and Yes supple Thyroid: Thyroid normal Carotids: normal carotid upstroke and bounding pulses Chest: Chest palpation & inspection: normal inspection of the chest Resp: Effort & Inspection: normal respiratory effort and able to speak in complete sentences Auscultation: clear to auscultation bilaterally, no crackles, no rales, no rhonchi and no wheezes Cardio: Rate: regular rate Rhythm: regular rhythm Heart sounds: S1 normal heart sound present and S2 normal heart sound present Peripheral pulses: Peripheral pulses 2+ throughout GI: Inspection: Yes normal to inspection Palpation (GI): Soft to palpation, nontender and No hepatosplenomegaly present Percussion: Yes normal to percu ssion Auscultation: normal bowel sounds Rectal Exam - Female: deferred : General: Yes no CVA tenderness Back/Spine/Pelvis: Back: no CVA tenderness Cervical Spine: normal cervical lordosis and cervical ROM normal Thoracic/Lumbar Spine: thoracic and lumbar spine normal to inspection and thoraco-lumbar ROM normal Skin: General skin exam: no rashes or lesions noted, elasticity normal and turgor normal Trauma: no lacerations or abrasions Wounds: no wounds Hair: normal Nails: normal Neuro: General: no meningeal signs and confusion (at baseline per daughter due to dementia ) Cranial nerves: Yes Equal, round and reactive pupils present and Yes Normal hearing present Cognition (Neuro): normal cognition Speech: Other speech findings present (Neuro) Gait exam (Neuro): Normal gait present Motor exam (neuro): 5/5 motor strength present throughout, Pronator motor function not present, no tremor noted, no asterixis, Motor fasciculations not present, Normal motor muscle tone present throughout and Motor abnormalities not present Sensory Exam: No Sensory deficit (Neuro) Deep tendon reflexes ( DTR's): Right triceps reflex intensity grade: 2+, Left triceps reflex intensity grade: 2+, Rt Biceps (C5, C6): 2+, Left biceps reflex intensity grade: 2+, Right brachioradialis reflex intensity grade: 2+, Left brachioradialis reflex intensity grade: 2+, Right patellar reflex intensity grade: 2+, Left patellar reflex intensity grade: 2+, Right ankle reflex intensity grade: 2+ and Left ankle reflex intensity grade: 2+ Plantar Reflex Responses: downgoing: right, left and bilateral Coordination: [id number] test normal and [id number] test normal Comatose Patient: corneal reflex present Pupils: Normal pupillary reactivity/response: bilateral Extrem: General: Yes normal to inspection, Yes full ROM, Yes capillary refill normal, Yes no clubbing, cyanosis or edema, No no pedal edema, No no calf tenderness, Yes normal gait and No edema Right upper extremity: normal to inspection, full ROM and normal capillary refill; no edema Left upper extremity: normal to inspection, full ROM and normal capillary refill; no edema Right lower extremity: normal to inspection, full ROM and normal capillary refill; no edema Left lower extremity: normal to inspection, full ROM and normal capillary refill; no edema Psych: Appearance: grossly normal and well kempt Speech and movement: Normal speech and movement present and Clear speech present Affect: normal affect Attitude: cooperative Thought process: Normal thought process present Thought content: Normal thought content present Insight: Good insight present (Psych) Judgement: Good judgement present (Psych) Results Labs CBC & Chem 7: 12/08/19 06:22 12/08/19 06:22 Labs: Short CBC 12/08/19 Range/Units 06:22 WBC 6.2 (4.8-10.8) X10*3/uL Hgb 13.0 (12.0-16.0) g/dl Hct 39.4 (37-47) % Plt Count 195 (160-400) X10*3/uL BMP 12/08/19 06:22 Sodium 141 Potassium 3.9 Chloride 107 Carbon Dioxide 24 BUN 17 H Creatinine 0.84 Calcium 8.7 Assessment and Plan (1) Syncope and collapse: Problem details: recommend checking orthostatic hypotension, cardiac monitoring, EEG Status: Acute (2) Dementia: Problem details: baseline dementia. CT scan shows age-related atrophy and microvascular disease. Recommend checking thyroid profile, B12 and folate levels Status: Acute (3) Syncope: Qualifiers: Encounter type: initial encounter Status: Acute she has mild baseline dementia which is stable. Standard dementia workup as suggested above. Syncope rule out seizures. Workup as suggested above
[2019-12-09] VITALS (8 sets, daily range): BP systolic 101–134; BP diastolic 55–71; PULSE 60–77; RESP 16–20; TEMP 36.4–36.6; O2SAT 95–98
[2019-12-09] MEDS: Cholecalciferol (Vitamin D3) 25 MCG TABLET PO (08:57)
[2019-12-09] MEDS: Aspirin 81 MG TAB.CHEW PO (08:57)
[2019-12-09] MEDS: 0.9 % Sodium Chloride Flush 3 ML SYRINGE IVFLUSH ×4 (08:57→21:37)
[2019-12-09 09:13] LABS: Thyroid Stimulating Hormone 1.82 mIU/mL (0.32-4.0)
--- NOTE | 2019-12-09 16:39 | P.PNIM_ITS ---
Subjective Subjective Date of Service: 12/09/19 Interval History: syncope. Review of Systems denies chest pain or shortness of breath or any new episode of syncope. Physical Exam Vital Signs: Vital Signs: Vital Signs Temp Pulse Resp BP Pulse Ox 12/09/19 15:02 97.8 F 69 18 108/57 L 96 12/09/19 14:53 68 114/58 L 97 12/09/19 11:44 97.6 F 68 16 114/58 L 97 12/09/19 08:06 64 126/58 L 12/09/19 08:00 60 134/60 12/09/19 06:52 98 F 68 20 123/59 L 12/09/19 03:06 97.5 F 68 18 128/71 98 12/08/19 23:16 98.0 F 75 18 130/68 95 12/08/19 19:00 98.3 F 81 20 103/60 97 Body Mass Index 26.7 physical exam: cvs: [id number], [id number] , no murmur res: clear to auscultation ,no rhonchii or wheezing abd: no rebound or guarding ,nt, bs present. ext pulses present , no cyanosis neuro: axo3 , nonfocal. Objective Data Current Medications Generic Name Dose Route Start Last Admin Trade Name Freq PRN Reason Stop Dose Admin Acetaminophen 650 mg 12/07/19 21:30 Acetaminophen 650 Mg Supp.Rect NH Q6H PRN Pain, Mild (Pain Scale 1-3) Aspirin 81 mg 12/08/19 09:00 12/09/19 08:57 Aspirin 81 Mg Tab.Chew PO 81 mg DAILY [facility] Administration Pharmacy Consult 1 each 12/07/19 15:33 Consult Rx Perform Med Rec MISCELLANE ONCE PRN Consult order Sodium Chloride 3 ml 12/07/19 21:30 12/09/19 08:57 0.9 % Sodium Chloride Flush 3 Ml Syringe IVFLUSH 3 ml QSHIFT [facility] Administration Vitamin D 25 mcg 12/08/19 09:00 12/09/19 08:57 Cholecalciferol (Vitamin D3) 25 Mcg Tablet PO 25 mcg DAILY [facility] Administration Labs CBC & Chem 7: 12/08/19 06:22 12/08/19 06:22 Assessment and Plan (1) Syncope and collapse: Problem details: recommend checking orthostatic hypotension, cardiac monitoring, EEG Status: Acute (2) Dementia: Problem details: baseline dementia. CT scan shows age-related atrophy and microvascular disease. Recommend checking thyroid profile, B12 and folate levels Status: Acute (3) Syncope: Status: Acute Assessment and Plan: 1.84 year old women admitted after an episode of possible syncope. Possibly orthostasis vs vasovagal. She has no significant other medical problems other than dementia. 1. Syncope unclear etiology question neurocardiogenic patient seen by Cardiology: telemetry seems fine Echocardiogram from last year shows normal LVEF at 60-65% and otherwise unrem arkable. tsh , folate and b12 pending seen by cardiology -patient has similar event in the past question of seizure was brought up . neuro saw the patient -outpatient eeg pt eval -? str 2. Dementia : supportive care . DVT prophylaxis with heparin
[2019-12-09 18:35] LABS: Folate 8.8 ng/mL (> or = 4.0); Vitamin B12 205 pg/mL (200-900)
[2019-12-10] VITALS (7 sets, daily range): BP systolic 96–138; BP diastolic 52–76; PULSE 62–86; RESP 18–20; TEMP 35.9–36.7; O2SAT 96–98
[2019-12-10] MEDS: Cholecalciferol (Vitamin D3) 25 MCG TABLET PO (07:37)
[2019-12-10] MEDS: Aspirin 81 MG TAB.CHEW PO (07:37)
[2019-12-10] MEDS: 0.9 % Sodium Chloride Flush 3 ML SYRINGE IVFLUSH (07:37)
--- NOTE | 2019-12-10 12:44 | PM.PNCARD ---
Subjective Subjective Interval history: syncope. Patient is tearful that she cannot speak to her daughter. Otherwise no specific cardiac complaints. Physical Exam Vital Signs: Vital Signs Temp Pulse Resp BP Pulse Ox 12/10/19 11:00 98.0 F 86 18 96/52 L 96 12/10/19 08:30 70 107/56 L 12/10/19 08:00 84 108/76 12/10/19 07:39 97.7 F 67 18 113/52 L 96 12/10/19 04:00 96.6 F L 62 20 111/59 L 96 12/10/19 00:00 98 F 78 20 131/57 L 98 12/09/19 19:08 97.9 F 77 18 101/55 L 95 12/09/19 15:02 97.8 F 69 18 108/57 L 96 12/09/19 14:53 68 114/58 L 97 Body Mass Index 26.7 Comfortable, no distress No pallor, icterus or cyanosis HEENT -unremarkable JVD- normal Cardiac- normal heart sounds, no murmurs, gallops or rubs, normal PMI Respiratory-normal breath sounds bilaterally, no crackles, no wheeze Abdomen- soft, nontender Neuro- alert and oriented Lower extremities- no significant edema, warm well perfused Progress Note: A&P Assessment and plan (1) Syncope and collapse: Status: Acute Assessment and Plan: Orthostatic blood pressures are negative. Echocardiogram from last year shows normal LVEF at 60-65% and otherwise unremarkable. (2) Sinus pause: Status: Acute Assessment and Plan: There was 1 episode of a pause of 3.7 seconds noted as today. However this is after PAC. Overall, no other significant pauses noted. We can arrange a 30 day event monitor for further monitoring. Otherwise stable for discharge from cardiac standpoint. Fall Risk Details Current Medications: Current Medications Generic Name Dose Route Start Last Admin Trade Name Freq PRN Reason Stop Dose Admin Acetaminophen 650 mg 12/07/19 21:30 Acetaminophen 650 Mg Supp.Rect IN Q6H PRN Pain, Mild (Pain Scale 1-3) Aspirin 81 mg 12/08/19 09:00 12/10/19 07:37 Aspirin 81 Mg Tab.Chew PO 81 mg DAILY [facility] Administration Pharmacy Consult 1 each 12/07/19 15:33 Consult Rx Perform Med Rec MISCELLANE ONCE PRN Consult order Sodium Chloride 3 ml 12/07/19 21:30 12/10/19 07:37 0.9 % Sodium Chloride Flush 3 Ml Syringe IVFLUSH 3 ml QSHIFT [facility] Administration Vitamin D 25 mcg 12/08/19 09:00 12/10/19 07:37 Cholecalciferol (Vitamin D3) 25 Mcg Tablet PO 25 mcg DAILY [facility] Administration Time Spent With Patient Time: Total time spent is greater than 50% in coordination of care (as documented) at patient's floor/unit and/or counseling patient: Time with patient: 15 - 24 minutes
--- NOTE | 2019-12-10 13:08 | MHC.CM.PN ---
pt dcing today at 4:30 to [facility] by amb today message left for cynthia hussein [phone]
[2019-12-10 14:16] LABS: SARS COV2 PCR INHOUSE NEGATIVE (Negative)
--- NOTE | 2019-12-10 16:20 | P.DS_ITS ---
DS: Providers Provider Date of admission: 12/07/19 15:35 Primary care physician: Unknown Physician Consults: 12/08/19 08:35 Consult to Cardiology Routine Consulting Provider: Jairon Henry Reason for consultation: syncope 12/08/19 14:16 Consult to Neurology Routine Consulting Provider: Oni Valles Reason for consultation: ? syncope /seizure Has provider been notified: No DS: Diagnosis Discharge Diagnosis (1) Syncope and collapse: Status: Acute (2) Sinus pause: Status: Acute DS: Summary Hospital Course Hospital Course: hpi:84 year old women presenting from home after an episode of syncope. She was standing in front of the sink in the bathroom washing up with her daughter and suddenly lost control of bowels told her daughter she felt weak. Her daughter was able to lower the patient to the floor. While the patient was on the ground apparently she lost consciousness. patient denies that she had any symptoms. She was mildly vague. head CT was negative for any acute abnormality. Chest x- ray in cervical spine CT were both negative as well. Her vital signs were stable, orthostatic blood pressure normal. EKG showed normal sinus rhythm. She is resting in bed, will placed on observation for further management treatment of syncope. pmx:Dementia Right shoulder injury Syncope and collapse. Hospital course problem stinson section: Syncope unclear etiology question- her orthostatic signs are negative, Patient was seen by CT head no acute abnormality chronic atrophy changes, no acute abnormality on chest x-ray. subsequently patient was seen by both cardio and Neurology: Neurology stinson TSH, folate and B12 levels was done seems fine. recommended to do outpatient EEG. Cardio stinson - There was 1 episode of a pause of 3.7 seconds noted as today. However this is after PAC. cardio d/w daughter:Due to dementia and declining overall health, she would rather not have anything done. We discussed about indication for pacemaker in the future if she were to have prolonged pauses on event monitoring, but she is not really interested. Hence at this time, no testing is arranged. Daughter has our phone number for any questions or concerns for any future concerns. Time Spent with Patient Time attestation: Total time spent providing and/or coordinating discharge services:50 min Physical Exam Vital Signs: Vital Signs: Vital Signs Temp Pulse Resp BP Pulse Ox 12/10/19 16:00 97.0 F 85 20 138/67 98 12/10/19 11:00 98.0 F 86 18 96/52 L 96 12/10/19 08:30 70 107/56 L 12/10/19 08:00 84 108/76 12/10/19 07:39 97.7 F 67 18 113/52 L 96 12/10/19 04:00 96.6 F L 62 20 111/59 L 96 12/10/19 00:00 98 F 78 20 131/57 L 98 12/09/19 19:08 97.9 F 77 18 101/55 L 95 Body Mass Index 26.7 physical exam: Cvs: rrr, [id number] , no murmur res: clear to auscultation ,no rhonchii or wheezing abd: no rebound or guarding ,nt, bs present. ext pulses present , no cyanosis neuro: awake , answers simple questions, nonfocal. DS: Data Data Completed and Pending Labs on day of discharge: Labs from last 24 hours 12/10/19 12/09/19 13:00 08:17 Vitamin B12 205 Folate 8.8 Coronavirus (PCR) NEGATIVE Discharge Plan Discharge Anticipated Discharge Date/Time: 12/10/19 14:03 Patient Disposition: Xfer Other Referrals: Eligio Bocanegra [Outside] Physician,Unknown [Primary Care Provider] - Discharge Medications: Continued aspirin 81 mg PO DAILY RF: 0 cholecalciferol (vitamin D3) [Vitamin D3] 25 mcg (1,000 unit) Capsule 25 mcg PO DAILY RF: 0 Discharge Orders: Discharge Order (Routine); Ordered 12/10/19 Ordered By: Trent Perkins Diet: advance to your usual diet Activity on Discharge: As tolerated Care Plan Goals: Patient came with syncopal episode: patient was seen by Neurology and Cardiology: Neurology recommended outpatient EEG testing, on telemetry patient had 3.7 bowels after discussion with patient daughter as per cardiology - family decided no intervention, further management outpatient as per Cardiology. Patient is to follow up outpatient with PCP and Neurology for further management also. Health Concerns: As above. The this this we did all this stuff see what so than now my of Plan of Treatment: As above.
== END 2019-12-10 16:45 | disposition other institution (70) ==
LOC: HO.ED 14:48 → HO.IMC 16:04
PROVIDERS: Internal Medicine; Nurse Practitioner Acute Care; Physician Assistant Medical; Admitting Provider Family Medicine; Emergency Provider Emergency Medicine; Visit Provider Family Medicine
DX: R55 Syncope and collapse (principal); F03.90 Unspecified dementia, unspecified severity, without behavioral disturbance, psychotic disturbance, mood disturbance, and anxiety; I45.5 Other specified heart block; I49.5 Sick sinus syndrome; Z87.891 Personal history of nicotine dependence; Z79.82 Long term (current) use of aspirin; Z79.899 Other long term (current) drug therapy; Z20.828 Contact with and (suspected) exposure to other viral communicable diseases
CPT/HCPCS: 36415; 70450; 71046; 72125; 80048; 80076; 82607; 82746; 83735; 84443; 84484; 85025; 87635; 93005; 97162; 99219; 99223; 99285

== ENCOUNTER 2019-12-11 07:05 | Outpatient (REF) | payer SELFPAY ==
[2019-12-11 07:43] LABS: Hematocrit 39.9 % (37-47); Hemoglobin 13.2 g/dl (12.0-16.0); Mean Corpuscular HGB Conc 33.1 g/dl (31.0-35.0); Mean Corpuscular Hemoglobin 33.3 pg (27.0-33.0); Mean Corpuscular Volume 100.8 fL (80-98); Mean Platelet Volume 11.8 fL (9.4-12.3); Platelet Count 192 X10*3/uL (160-400); Red Blood Count 3.96 X10*6/uL (4.20-5.50); Red Cell Distribution Width 12.4 % (11.0-16.0); White Blood Count 5.4 X10*3/uL (4.8-10.8)
[2019-12-11 08:12] LABS: Alanine Aminotransferase 10 U/L (0-31); Albumin Level 3.8 g/dL (3.5-5.0); Alkaline Phosphatase 85 U/L (39-117); Anion Gap 12 (12-20); Aspartate Amino Transferase 14 U/L (5-31); Bilirubin Total 0.7 mg/dL (0.0-1.0); Blood Urea Nitrogen 22 mg/dL (9-16); Calcium 8.7 mg/dL (8.4-10.2); Carbon Dioxide 26 mmol/L (22-29); Chloride 108 mmol/L (96-108); Estimated Glomerular Filt Rate 56; Glucose Random 85 mg/dL (60-115); Potassium 4.1 mmol/l (3.3-5.1); Sodium 142 mmol/L (135-145)
== END 2019-12-11 07:06 | disposition home or self-care (01) ==
LOC: HO.MMNH1L 07:05
PROVIDERS: Visit Provider Family Medicine
DX: R55 Syncope and collapse (principal)
CPT/HCPCS: 36415; 80053; 85027

== ENCOUNTER 2020-01-13 | Outpatient (REF) | payer MEDICARE, MEDICAID, SELFPAY ==
[2020-01-13 07:37] LABS: Hematocrit 38.5 % (37-47); Hemoglobin 12.4 g/dl (12.0-16.0); Mean Corpuscular HGB Conc 32.2 g/dl (31.0-35.0); Mean Corpuscular Hemoglobin 32.9 pg (27.0-33.0); Mean Corpuscular Volume 102.1 fL (80-98); Mean Platelet Volume 11.7 fL (9.4-12.3); Platelet Count 195 X10*3/uL (160-400); Red Blood Count 3.77 X10*6/uL (4.20-5.50); Red Cell Distribution Width 12.5 % (11.0-16.0); White Blood Count 5.5 X10*3/uL (4.8-10.8)
[2020-01-13 07:58] LABS: Anion Gap 11 (12-20); Blood Urea Nitrogen 14 mg/dL (9-16); Calcium 8.7 mg/dL (8.4-10.2); Carbon Dioxide 29 mmol/L (22-29); Chloride 107 mmol/L (96-108); Estimated Glomerular Filt Rate > 60; Glucose Random 75 mg/dL (60-115); Potassium 4.1 mmol/l (3.3-5.1); Sodium 143 mmol/L (135-145)
== END 2020-01-13 00:01 | disposition home or self-care (01) ==
LOC: HO.MMNH2L
PROVIDERS: Visit Provider Family Medicine
DX: R55 Syncope and collapse (principal)
CPT/HCPCS: 36415; 80048; 85027

== ENCOUNTER 2020-02-13 06:27 | Outpatient (REF) | payer MEDICARE, MEDICAID, SELFPAY ==
[2020-02-13 06:33] LABS: MANUAL DIFF FLAG NO
[2020-02-13 07:09] LABS: Basophils Percent Auto 0.3 % (0-2); Eosinophils Absolute Auto 0.3 X10*3/uL (0.0-0.4); Eosinophils Percent Auto 3.7 % (0-4); Hematocrit 38.8 % (37-47); Hemoglobin 12.7 g/dl (12.0-16.0); Imm Gran Abs Auto 0.01 X10*3/uL (0.00-0.03); Imm Gran Pct Auto 0.1 % (0.0-0.4); Lymphocytes Absolute Auto 2.1 X10*3/uL (1.2-4.9); Lymphocytes Percent Auto 31.1 % (20-40); Mean Corpuscular HGB Conc 32.7 g/dl (31.0-35.0); Mean Corpuscular Hemoglobin 32.6 pg (27.0-33.0); Mean Corpuscular Volume 99.5 fL (80-98); Mean Platelet Volume 11.1 fL (9.4-12.3); Monocytes Absolute Auto 0.5 X10*3/uL (0.1-1.2); Neutrophils Absolute Auto 3.9 X10*3/uL (2.0-8.3); Neutrophils Percent Auto 56.8 % (45-73); Platelet Count 212 X10*3/uL (160-400); Red Cell Distribution Width 12.6 % (11.0-16.0); White Blood Count 6.8 X10*3/uL (4.8-10.8)
[2020-02-13 07:39] LABS: Anion Gap 12 (12-20); Blood Urea Nitrogen 14 mg/dL (9-16); Calcium 8.7 mg/dL (8.4-10.2); Carbon Dioxide 24 mmol/L (22-29); Chloride 111 mmol/L (96-108); Estimated Glomerular Filt Rate > 60; Glucose Random 84 mg/dL (60-115); Potassium 4.1 mmol/l (3.3-5.1); Sodium 143 mmol/L (135-145)
== END 2020-02-13 06:28 | disposition home or self-care (01) ==
LOC: HO.MMNH2L 06:27
PROVIDERS: Visit Provider Family Medicine
DX: M19.90 Unspecified osteoarthritis, unspecified site (principal)
CPT/HCPCS: 36415; 80048; 85025

== ENCOUNTER 2020-02-25 | Outpatient (REF) | payer MEDICARE, MEDICAID, SELFPAY ==
[2020-02-26 05:42] LABS: Glucose Urine UA NEG (NEG); Leukocyte Esterase Urine NEG (NEG); Nitrite Urine NEG (NEG); Specific Gravity - Urine >= 1.030 (1.005-1.025); Urine Blood TRACE (NEG); Urine Ketones NEG (NEG); Urine Protein NEG (NEG-TRACE)
[2020-02-26 05:43] LABS: Appearance Urine TURBID; Color Urine YELLOW
[2020-02-26 05:56] LABS: Amorphous Sediment Urine 4+ /LPF; RBC Urine 0-2 /HPF (0); WBC Urine 0 /HPF (0-4)
== END 2020-02-25 00:01 | disposition home or self-care (01) ==
LOC: HO.MMNH2L
PROVIDERS: Visit Provider Family Medicine
DX: R79.89 Other specified abnormal findings of blood chemistry (principal)
CPT/HCPCS: 81001

== ENCOUNTER 2020-03-16 06:51 | Outpatient (REF) | payer SELFPAY ==
[2020-03-16 07:45] LABS: Hematocrit 37.8 % (37-47); Hemoglobin 12.2 g/dl (12.0-16.0); Mean Corpuscular HGB Conc 32.3 g/dl (31.0-35.0); Mean Corpuscular Hemoglobin 32.3 pg (27.0-33.0); Mean Platelet Volume 11.2 fL (9.4-12.3); Platelet Count 248 X10*3/uL (160-400); Red Blood Count 3.78 X10*6/uL (4.20-5.50); Red Cell Distribution Width 12.9 % (11.0-16.0); White Blood Count 6.5 X10*3/uL (4.8-10.8)
[2020-03-16 07:57] LABS: Anion Gap 15 (12-20); Blood Urea Nitrogen 15 mg/dL (9-16); Calcium 8.5 mg/dL (8.4-10.2); Carbon Dioxide 22 mmol/L (22-29); Chloride 109 mmol/L (96-108); Estimated Glomerular Filt Rate > 60; Glucose Random 82 mg/dL (60-115); Potassium 3.9 mmol/l (3.3-5.1); Sodium 142 mmol/L (135-145)
== END 2020-03-16 06:52 | disposition home or self-care (01) ==
LOC: HO.MMNH2L 06:51
PROVIDERS: Visit Provider Family Medicine
DX: M19.90 Unspecified osteoarthritis, unspecified site (principal)
CPT/HCPCS: 36415; 80048; 85027

== ENCOUNTER 2020-05-13 07:01 | Outpatient (REF) | payer MEDICARE, MEDICAID, SELFPAY ==
[2020-05-13 07:41] LABS: Hemoglobin 11.7 g/dl (12.0-16.0); Mean Corpuscular HGB Conc 32.5 g/dl (31.0-35.0); Mean Corpuscular Hemoglobin 32.2 pg (27.0-33.0); Mean Corpuscular Volume 99.2 fL (80-98); Mean Platelet Volume 11.5 fL (9.4-12.3); Platelet Count 215 X10*3/uL (160-400); Red Blood Count 3.63 X10*6/uL (4.20-5.50); Red Cell Distribution Width 13.5 % (11.0-16.0); White Blood Count 5.8 X10*3/uL (4.8-10.8)
[2020-05-13 08:00] LABS: Anion Gap 10 (12-20); Blood Urea Nitrogen 20 mg/dL (9-16); Calcium 8.5 mg/dL (8.4-10.2); Carbon Dioxide 27 mmol/L (22-29); Chloride 107 mmol/L (96-108); Estimated Glomerular Filt Rate > 60; Glucose Random 85 mg/dL (60-115); Potassium 4.4 mmol/L (3.3-5.1); Sodium 140 mmol/L (135-145)
== END 2020-05-13 07:02 | disposition home or self-care (01) ==
LOC: HO.MMNH2L 07:01
PROVIDERS: Visit Provider Family Medicine
DX: R55 Syncope and collapse (principal); M51.36 Other intervertebral disc degeneration, lumbar region; M19.90 Unspecified osteoarthritis, unspecified site
CPT/HCPCS: 36415; 80048; 85027

== ENCOUNTER 2020-07-25 20:16 | Emergency (ER) | payer MEDICARE, MEDICAID, SELFPAY ==
[2020-07-25 20:27] VITALS: BP 127/50; PULSE 65; RESP 18; TEMP 36.6; O2SAT 98; BMI 24.2
--- NOTE | 2020-07-25 20:45 | ECG_ITS ---
Test Reason : SYNCOPE Blood Pressure : / mmHG Vent. Rate : 063 BPM Atrial Rate : 063 BPM P-R Int : 174 ms QRS Dur : 084 ms QT Int : 456 ms P-R-T Axes : 026 007 074 degrees QTc Int : 466 ms Normal sinus rhythm Nonspecific ST and T wave abnormality Abnormal ECG When compared with ECG of 07-DEC-2019 11:05, No significant change was found Referred By: Terry Kimbrough Electronically Signed By:ALEXANDER BEYER
--- NOTE | 2020-07-25 20:45 | ED.SYNCOPE ---
HPI - Syncope General Chief Complaint: Syncope Stated Complaint: ams syncope Time Seen by Provider: 07/25/20 20:45 Source: EMS and RN notes reviewed Mode of arrival: EMS History of Present Illness HPI narrative: Patient history of dementia brought by EMS for syncope episode while patient is sitting on the toilet trying to move bowels patient remembers sitting on the toilet does not remember what happened. Patient does have a history of similar episodes in the past at this time patient has no complaints no headache no injuries no abdominal pain no vomiting MD complaint: collapsed Related Data Home Medications Medication Instructions Recorded Confirmed aspirin 81 mg PO DAILY 12/07/19 12/07/19 cholecalciferol (vitamin D3) 25 mcg PO DAILY 12/07/19 12/07/19 [Vitamin D3] Allergies Allergy/AdvReac Type Severity Reaction Status Date / Time No Known Allergies Allergy Verified 12/07/19 10:00 [No Known Allergies*] Review of Systems Review of Systems: Limited HPI and ROS secondary to dementia Yes Unobtainable due to mental status PMFSH Past Medical History Medical History Dementia Right shoulder injury Syncope and collapse Social History Social History Alcohol intake: former Advance Directives: Yes Advance Directives on File: Yes Advance Directives Date on File: 02/07/05 service: No Current occupational status: retired Physical Exam Vital Signs: Vital Signs: Last Vital Signs Temp 97.9 F 07/25/20 20:27 Pulse 65 07/25/20 20:27 Resp 18 07/25/20 20:27 BP 127/50 L 07/25/20 20:27 Pulse Ox 98 07/25/20 20:27 Body Mass Index 24.2 Const: General: no acute distress Nutritional Appearance: average body habitus Orientation/consciousness: oriented to person and oriented to place HENMT: Head: Yes No palpable skull fracture present, Yes normocephalic and Yes atraumatic Eyes: General: appearance normal, both eyes and all related structures Neck: Neck: Yes normal visual inspection and Yes full ROM Thyroid: Thyroid normal Chest: Chest palpation & inspection: normal inspection of the chest and normal palpation of entire chest wall Resp: Effort & Inspection: normal respiratory effort Auscultation: clear to auscultation bilaterally, no crackles and no rales Cardio: Palpation: normal PMI Rate: regular rate Rhythm: regular rhythm Heart sounds: S1 normal heart sound present and S2 normal heart sound present Peripheral pulses: Peripheral pulses 2+ throughout GI: Inspection: Yes normal to inspection Palpation (GI): Soft to palpation and nontender Auscultation: normal bowel sounds : General: Yes no CVA tenderness Back/Spine/Pelvis: Back: no CVA tenderness Thoracic/Lumbar Spine: thoracic and lumbar spine normal to inspection Neuro: General: oriented to person, oriented to place, tone normal, moves all extremities, no focal motor deficits and CN's II-XI intact bilaterally Extrem: General: Yes normal to inspection, Yes no calf tenderness and No pedal edema MDM - Syncope MDM Narrative Medical decision making narrative: Patient likely syncope secondary to pain when trying to move bowel movements lab workup is negative no cardiac arrhythmias noticed will discharge patient back to long term with diagnosis of vasovagal syncope Medical Records Attestation: I reviewed the patient's medical records. Lab Data Attestation: I reviewed the patient's lab results. Result diagrams: 07/25/20 21:13 07/25/20 21:13 Labs: Lab Results 07/25/20 07/25/20 07/25/20 Range/Units 21:13 21:13 21:13 WBC 10.9 H (4.8-10.8) X10*3/uL RBC 4.16 L (4.20-5.50) X10*6/uL Hgb 13.7 (12.0-16.0) g/dl Hct 41.7 (37-47) % MCV 100.2 H (80-98) fL MCH 32.9 (27.0-33.0) pg MCHC 32.9 (31.0-35.0) g/dl RDW 13.0 (11.0-16.0) % Plt Count 198 (160-400) X10*3/uL MPV 11.1 (9.4-12.3) fL Immature Gran % (Auto) 0.2 (0.0-0.4) % Neut % (Auto) 66.5 (45-73) % Lymph % (Auto) 21.0 (20-40) % [place] % (Auto) 9.1 (2-11) % Eos % (Auto) 3.0 (0-4) % Baso % (Auto) 0.2 (0-2) % Lymph # (Auto) 2.3 (1.2-4.9) X10*3/uL [place] # (Auto) 1.0 (0.1-1.2) X10*3/uL Eos # (Auto) 0.3 (0.0-0.4) X10*3/uL Baso # (Auto) 0.0 (0.0-0.2) X10*3/uL Abs Immat Gran (auto) 0.02 (0.00-0.03) X10*3/uL Absolute Neuts (auto) 7.2 (2.0-8.3) X10*3/uL Absolute Nucleated RBC 0.000 (0.0-0.012) X10*3/uL Nucleated RBC % (auto) 0.0 (0.0-0.2) /100WBC PT 11.8 (10.8-13.0) SEC INR 1.0 (0.9-1.1) APTT 32.8 (24.1-38.0) SEC Sodium 145 (135-145) mmol/L Potassium 3.8 (3.3-5.1) mmol/L Chloride 107 (96-108) mmol/L Carbon Dioxide 26 (22-29) mmol/L Anion Gap 16 (12-20) BUN 23 H (9-16) mg/dL Creatinine 0.77 (0.5-1.4) mg/dL Estim Creat Clear Calc 51.8 Estimated GFR > 60 Random Glucose 94 (60-115) mg/dL Calcium 9.3 D (8.4-10.2) mg/dL Total Bilirubin (0.0-1.0) mg/dL Direct Bilirubin (0.0-0.5) mg/dL AST (5-31) U/L ALT (0-31) U/L Alkaline Phosphatase (39-117) U/L Troponin I High Sens (<3.5-17.0) ng/L Total Protein (6.5-8.0) g/dL Albumin (3.5-5.0) g/dL 07/25/20 07/25/20 Range/Units 21:13 21:13 WBC (4.8-10.8) X10*3/uL RBC (4.20-5.50) X10*6/uL Hgb (12.0-16.0) g/dl Hct (37-47) % MCV (80-98) fL MCH (27.0-33.0) pg MCHC (31.0-35.0) g/dl RDW (11.0-16.0) % Plt Count (160-400) X10*3/uL MPV (9.4-12.3) fL Immature Gran % (Auto) (0.0-0.4) % Neut % (Auto) (45-73) % Lymph % (Auto) (20-40) % [place] % (Auto) (2-11) % Eos % (Auto) (0-4) % Baso % (Auto) (0-2) % Lymph # (Auto) (1.2-4.9) X10*3/uL [place] # (Auto) (0.1-1.2) X10*3/uL Eos # (Auto) (0.0-0.4) X10*3/uL Baso # (Auto) (0.0-0.2) X10*3/uL Abs Immat Gran (auto) (0.00-0.03) X10*3/uL Absolute Neuts (auto) (2.0-8.3) X10*3/uL Absolute Nucleated RBC (0.0-0.012) X10*3/uL Nucleated RBC % (auto) (0.0-0.2) /100WBC PT (10.8-13.0) SEC INR (0.9-1.1) APTT (24.1-38.0) SEC Sodium (135-145) mmol/L Potassium (3.3-5.1) mmol/L Chloride (96-108) mmol/L Carbon Dioxide (22-29) mmol/L Anion Gap (12-20) BUN (9-16) mg/dL Creatinine (0.5-1.4) mg/dL Estim Creat Clear Calc Estimated GFR Random Glucose (60-115) mg/dL Calcium (8.4-10.2) mg/dL Total Bilirubin 0.4 (0.0-1.0) mg/dL Direct Bilirubin 0.2 (0.0-0.5) mg/dL AST 11 (5-31) U/L ALT 8 (0-31) U/L Alkaline Phosphatase 104 D (39-117) U/L Troponin I High Sens < 3.5 (<3.5-17.0) ng/L Total Protein 6.2 L (6.5-8.0) g/dL Albumin 4.0 (3.5-5.0) g/dL ECG Data Attestation: I personally reviewed and interpreted this ECG as follows: Interpretation: Normal sinus rhythm heart rate 63 beats per minute nonspecific ST T wave changes normal axis no acute ischemic changes Discharge Plan Discharge Clinical Impression: Vasovagal syncope Patient Disposition: Xfer LTC Instructions: Syncope in Older Adults (ED) Additional Instructions: Continue medications and follow with PCP Prescriptions: No Action aspirin 81 mg PO DAILY RF: 0 cholecalciferol (vitamin D3) [Vitamin D3] 25 mcg (1,000 unit) Capsule 25 mcg PO DAILY RF: 0
[2020-07-25 21:24] LABS: MANUAL DIFF FLAG NO
[2020-07-25 21:25] LABS: Basophils Percent Auto 0.2 % (0-2); Eosinophils Absolute Auto 0.3 X10*3/uL (0.0-0.4); Hematocrit 41.7 % (37-47); Hemoglobin 13.7 g/dl (12.0-16.0); Imm Gran Abs Auto 0.02 X10*3/uL (0.00-0.03); Imm Gran Pct Auto 0.2 % (0.0-0.4); Lymphocytes Absolute Auto 2.3 X10*3/uL (1.2-4.9); Mean Corpuscular HGB Conc 32.9 g/dl (31.0-35.0); Mean Corpuscular Hemoglobin 32.9 pg (27.0-33.0); Mean Corpuscular Volume 100.2 fL (80-98); Mean Platelet Volume 11.1 fL (9.4-12.3); Monocytes Percent Auto 9.1 % (2-11); Neutrophils Absolute Auto 7.2 X10*3/uL (2.0-8.3); Neutrophils Percent Auto 66.5 % (45-73); Platelet Count 198 X10*3/uL (160-400); Red Blood Count 4.16 X10*6/uL (4.20-5.50); White Blood Count 10.9 X10*3/uL (4.8-10.8)
[2020-07-25 21:31] LABS: Prothrombin Time 11.8 SEC (10.8-13.0)
[2020-07-25 21:33] LABS: Partial Thromboplastin Time 32.8 SEC (24.1-38.0)
[2020-07-25 21:55] LABS: Anion Gap 16 (12-20); Blood Urea Nitrogen 23 mg/dL (9-16); Calcium 9.3 mg/dL (8.4-10.2); Carbon Dioxide 26 mmol/L (22-29); Chloride 107 mmol/L (96-108); Creatinine Clr Calc Pharmacy 51.8; Estimated Glomerular Filt Rate > 60; Glucose Random 94 mg/dL (60-115); Potassium 3.8 mmol/L (3.3-5.1); Sodium 145 mmol/L (135-145)
[2020-07-25 21:56] LABS: Alanine Aminotransferase 8 U/L (0-31); Alkaline Phosphatase 104 U/L (39-117); Aspartate Amino Transferase 11 U/L (5-31); Bilirubin Direct 0.2 mg/dL (0.0-0.5); Bilirubin Total 0.4 mg/dL (0.0-1.0); Total Protein 6.2 g/dL (6.5-8.0)
[2020-07-25 22:03] LABS: Troponin-I High Sensitivity < 3.5 ng/L (<3.5-17.0)
== END 2020-07-26 00:57 ==
PROVIDERS: Emergency Provider Internal Medicine; PCP Family Medicine
DX: R55 Syncope and collapse (principal); Z79.899 Other long term (current) drug therapy
CPT/HCPCS: 36415; 80048; 80076; 84484; 85025; 85610; 85730; 93005; 99283

== ENCOUNTER 2020-08-13 00:14 | Outpatient (REF) | payer MEDICARE, MEDICAID, SELFPAY ==
[2020-08-13 05:48] LABS: Hematocrit 35.2 % (37-47); Hemoglobin 11.3 g/dl (12.0-16.0); Mean Corpuscular HGB Conc 32.1 g/dl (31.0-35.0); Mean Corpuscular Hemoglobin 32.6 pg (27.0-33.0); Mean Corpuscular Volume 101.4 fL (80-98); Mean Platelet Volume 11.4 fL (9.4-12.3); Platelet Count 205 X10*3/uL (160-400); Red Blood Count 3.47 X10*6/uL (4.20-5.50); Red Cell Distribution Width 12.7 % (11.0-16.0); White Blood Count 5.5 X10*3/uL (4.8-10.8)
[2020-08-13 06:10] LABS: Anion Gap 10 (12-20); Blood Urea Nitrogen 20 mg/dL (9-16); Calcium 8.7 mg/dL (8.4-10.2); Carbon Dioxide 26 mmol/L (22-29); Chloride 111 mmol/L (96-108); Estimated Glomerular Filt Rate > 60; Glucose Random 86 mg/dL (60-115); Potassium 4.4 mmol/L (3.3-5.1); Sodium 143 mmol/L (135-145)
== END 2020-08-13 00:15 | disposition home or self-care (01) ==
LOC: HO.MMNH2L 00:14
PROVIDERS: Visit Provider Family Medicine
DX: M51.36 Other intervertebral disc degeneration, lumbar region (principal); R55 Syncope and collapse; M19.90 Unspecified osteoarthritis, unspecified site
CPT/HCPCS: 36415; 80048; 85027

== ENCOUNTER 2020-09-12 05:15 | Outpatient (REF) | payer MEDICARE, MEDICAID, SELFPAY ==
[2020-09-12 05:30] LABS: Hematocrit 37.3 % (37-47); Hemoglobin 12.3 g/dl (12.0-16.0); Mean Corpuscular Hemoglobin 33.3 pg (27.0-33.0); Mean Corpuscular Volume 101.1 fL (80-98); Mean Platelet Volume 11.7 fL (9.4-12.3); Platelet Count 201 X10*3/uL (160-400); Red Blood Count 3.69 X10*6/uL (4.20-5.50); Red Cell Distribution Width 12.7 % (11.0-16.0); White Blood Count 5.9 X10*3/uL (4.8-10.8)
[2020-09-12 05:50] LABS: Anion Gap 13 (12-20); Blood Urea Nitrogen 18 mg/dL (9-16); Calcium 9.2 mg/dL (8.4-10.2); Carbon Dioxide 25 mmol/L (22-29); Chloride 109 mmol/L (96-108); Estimated Glomerular Filt Rate > 60; Glucose Random 85 mg/dL (60-115); Potassium 4.1 mmol/L (3.3-5.1); Sodium 143 mmol/L (135-145)
== END 2020-09-12 05:16 | disposition home or self-care (01) ==
LOC: HO.MMNH2L 05:15
PROVIDERS: Visit Provider Family Medicine
DX: M51.36 Other intervertebral disc degeneration, lumbar region (principal); R55 Syncope and collapse; M19.90 Unspecified osteoarthritis, unspecified site
CPT/HCPCS: 36415; 80048; 85027

== ENCOUNTER 2020-10-13 06:16 | Outpatient (REF) | payer MEDICARE, MEDICAID, SELFPAY ==
[2020-10-13 06:37] LABS: Hematocrit 38.3 % (37-47); Hemoglobin 12.5 g/dl (12.0-16.0); Mean Corpuscular HGB Conc 32.6 g/dl (31.0-35.0); Mean Corpuscular Volume 101.1 fL (80-98); Mean Platelet Volume 11.7 fL (9.4-12.3); Platelet Count 191 X10*3/uL (160-400); Red Blood Count 3.79 X10*6/uL (4.20-5.50); Red Cell Distribution Width 12.5 % (11.0-16.0); White Blood Count 5.3 X10*3/uL (4.8-10.8)
[2020-10-13 06:57] LABS: Anion Gap 13 (12-20); Blood Urea Nitrogen 18 mg/dL (9-16); Calcium 9.4 mg/dL (8.4-10.2); Carbon Dioxide 26 mmol/L (22-29); Chloride 109 mmol/L (96-108); Estimated Glomerular Filt Rate 58; Glucose Random 87 mg/dL (60-115); Potassium 4.3 mmol/L (3.3-5.1); Sodium 144 mmol/L (135-145)
== END 2020-10-13 06:17 | disposition home or self-care (01) ==
LOC: HO.MMNH2L 06:16
PROVIDERS: Visit Provider Family Medicine
DX: M51.36 Other intervertebral disc degeneration, lumbar region (principal); R55 Syncope and collapse; M19.90 Unspecified osteoarthritis, unspecified site
CPT/HCPCS: 36415; 80048; 85027

== ENCOUNTER 2020-11-13 | Outpatient (REF) | payer MEDICARE, MEDICAID, SELFPAY ==
[2020-11-13 05:56] LABS: Mean Corpuscular HGB Conc 33.3 g/dl (31.0-35.0); Mean Corpuscular Hemoglobin 33.3 pg (27.0-33.0); Platelet Count 184 X10*3/uL (160-400); Red Cell Distribution Width 12.5 % (11.0-16.0); White Blood Count 5.4 X10*3/uL (4.8-10.8)
[2020-11-13 06:11] LABS: Anion Gap 9 (12-20); Blood Urea Nitrogen 19 mg/dL (9-16); Calcium 8.9 mg/dL (8.4-10.2); Carbon Dioxide 27 mmol/L (22-29); Chloride 112 mmol/L (96-108); Estimated Glomerular Filt Rate > 60; Glucose Random 87 mg/dL (60-115); Potassium 4.5 mmol/L (3.3-5.1); Sodium 143 mmol/L (135-145)
== END 2020-11-13 00:01 | disposition home or self-care (01) ==
LOC: HO.MMNH2L
PROVIDERS: Visit Provider Family Medicine
DX: M51.36 Other intervertebral disc degeneration, lumbar region (principal); R55 Syncope and collapse; M19.90 Unspecified osteoarthritis, unspecified site
CPT/HCPCS: 36415; 80048; 85027

== ENCOUNTER 2020-12-14 | Outpatient (REF) | payer MEDICARE, MEDICAID, SELFPAY ==
[2020-12-14 06:49] LABS: Hematocrit 36.6 % (37-47); Hemoglobin 12.1 g/dl (12.0-16.0); Mean Corpuscular HGB Conc 33.1 g/dl (31.0-35.0); Mean Corpuscular Volume 99.7 fL (80-98); Mean Platelet Volume 11.3 fL (9.4-12.3); Platelet Count 225 X10*3/uL (160-400); Red Blood Count 3.67 X10*6/uL (4.20-5.50); Red Cell Distribution Width 12.5 % (11.0-16.0); White Blood Count 6.1 X10*3/uL (4.8-10.8)
[2020-12-14 06:56] LABS: Anion Gap 14 (12-20); Blood Urea Nitrogen 19 mg/dL (9-16); Carbon Dioxide 23 mmol/L (22-29); Chloride 111 mmol/L (96-108); Estimated Glomerular Filt Rate > 60; Glucose Random 88 mg/dL (60-115); Potassium 4.2 mmol/L (3.3-5.1); Sodium 144 mmol/L (135-145)
== END 2020-12-14 00:01 | disposition home or self-care (01) ==
LOC: HO.MMNH2L
PROVIDERS: Visit Provider Family Medicine
DX: M51.36 Other intervertebral disc degeneration, lumbar region (principal); R55 Syncope and collapse; M19.90 Unspecified osteoarthritis, unspecified site
CPT/HCPCS: 36415; 80048; 85027

== ENCOUNTER 2020-12-28 | Outpatient (REF) | payer MEDICARE, MEDICAID, SELFPAY ==
[2020-12-28 06:53] LABS: MANUAL DIFF FLAG NO
[2020-12-28 07:22] LABS: Basophils Percent Auto 0.3 % (0-2); Eosinophils Absolute Auto 0.3 X10*3/uL (0.0-0.4); Eosinophils Percent Auto 4.5 % (0-4); Hematocrit 35.8 % (37.0-47.0); Imm Gran Abs Auto 0.01 X10*3/uL (0.00-0.03); Imm Gran Pct Auto 0.2 % (0.0-0.4); Lymphocytes Absolute Auto 2.1 X10*3/uL (1.2-4.9); Lymphocytes Percent Auto 35.8 % (20-40); Mean Corpuscular HGB Conc 33.5 g/dl (31.0-35.0); Mean Corpuscular Hemoglobin 33.6 pg (27.0-33.0); Mean Corpuscular Volume 100.3 fL (80.0-98.0); Mean Platelet Volume 11.5 fL (9.4-12.3); Monocytes Absolute Auto 0.5 X10*3/uL (0.1-1.2); Monocytes Percent Auto 9.3 % (2-11); Neutrophils Absolute Auto 2.88 x10*3/uL (2.0-8.3); Neutrophils Percent Auto 49.9 % (45-73); Platelet Count 208 X10*3/uL (160-400); Red Blood Count 3.57 X10*6/uL (4.20-5.50); Red Cell Distribution Width 12.5 % (11.0-16.0); White Blood Count 5.8 X10*3/uL (4.8-10.8)
[2020-12-28 07:52] LABS: Anion Gap 14 (12-20); Blood Urea Nitrogen 20 mg/dL (9-16); Calcium 8.8 mg/dL (8.4-10.2); Carbon Dioxide 24 mmol/L (22-29); Chloride 108 mmol/L (96-108); Estimated Glomerular Filt Rate > 60; Glucose Random 81 mg/dL (60-115); Potassium 4.4 mmol/L (3.3-5.1); Sodium 142 mmol/L (135-145)
== END 2020-12-28 00:01 | disposition home or self-care (01) ==
LOC: HO.MMNH2L
PROVIDERS: Visit Provider Family Medicine
DX: Z13.89 Encounter for screening for other disorder (principal)
CPT/HCPCS: 36415; 80048; 85025

== ENCOUNTER 2021-02-01 00:24 | Outpatient (REF) | payer MEDICARE, MEDICAID, SELFPAY ==
[2021-02-01 07:34] LABS: MANUAL DIFF FLAG NO
[2021-02-01 08:07] LABS: Basophils Percent Auto 0.3 % (0-2); Eosinophils Absolute Auto 0.3 X10*3/uL (0.0-0.4); Hematocrit 37.2 % (37.0-47.0); Hemoglobin 12.1 g/dl (12.0-16.0); Imm Gran Abs Auto 0.02 X10*3/uL (0.00-0.03); Imm Gran Pct Auto 0.3 % (0.0-0.4); Lymphocytes Absolute Auto 1.9 X10*3/uL (1.2-4.9); Lymphocytes Percent Auto 29.9 % (20-40); Mean Corpuscular HGB Conc 32.5 g/dl (31.0-35.0); Mean Corpuscular Hemoglobin 32.6 pg (27.0-33.0); Mean Corpuscular Volume 100.3 fL (80.0-98.0); Mean Platelet Volume 11.5 fL (9.4-12.3); Monocytes Absolute Auto 0.5 X10*3/uL (0.1-1.2); Monocytes Percent Auto 7.6 % (2-11); Neutrophils Absolute Auto 3.7 x10*3/uL (2.0-8.3); Neutrophils Percent Auto 57.9 % (45-73); Platelet Count 195 X10*3/uL (160-400); Red Blood Count 3.71 X10*6/uL (4.20-5.50); Red Cell Distribution Width 12.8 % (11.0-16.0); White Blood Count 6.5 X10*3/uL (4.8-10.8)
[2021-02-01 08:28] LABS: Anion Gap 12 (12-20); Blood Urea Nitrogen 18 mg/dL (9-16); Calcium 8.7 mg/dL (8.4-10.2); Carbon Dioxide 24 mmol/L (22-29); Chloride 111 mmol/L (96-108); Estimated Glomerular Filt Rate > 60; Glucose Random 79 mg/dL (60-115); Potassium 4.2 mmol/L (3.3-5.1); Sodium 143 mmol/L (135-145)
== END 2021-02-01 00:25 | disposition home or self-care (01) ==
LOC: HO.MMNH2L 00:24
PROVIDERS: Visit Provider Family Medicine
DX: Z13.89 Encounter for screening for other disorder (principal)
CPT/HCPCS: 36415; 80048; 85025

== ENCOUNTER 2021-04-05 | Outpatient (REF) | payer MEDICARE, MEDICAID, SELFPAY ==
[2021-04-05 07:21] LABS: MANUAL DIFF FLAG NO
[2021-04-05 07:40] LABS: Basophils Percent Auto 0.3 % (0-2); Eosinophils Absolute Auto 0.4 X10*3/uL (0.0-0.4); Eosinophils Percent Auto 6.7 % (0-4); Hematocrit 36.5 % (37.0-47.0); Hemoglobin 11.8 g/dl (12.0-16.0); Imm Gran Abs Auto 0.01 X10*3/uL (0.00-0.03); Imm Gran Pct Auto 0.2 % (0.0-0.4); Lymphocytes Absolute Auto 2.2 X10*3/uL (1.2-4.9); Lymphocytes Percent Auto 35.1 % (20-40); Mean Corpuscular HGB Conc 32.3 g/dl (31.0-35.0); Mean Corpuscular Hemoglobin 32.3 pg (27.0-33.0); Mean Platelet Volume 11.6 fL (9.4-12.3); Monocytes Absolute Auto 0.6 X10*3/uL (0.1-1.2); Monocytes Percent Auto 9.3 % (2-11); Neutrophils Percent Auto 48.4 % (45-73); Platelet Count 202 X10*3/uL (160-400); Red Blood Count 3.65 X10*6/uL (4.20-5.50); Red Cell Distribution Width 13.2 % (11.0-16.0); White Blood Count 6.2 X10*3/uL (4.8-10.8)
[2021-04-05 08:27] LABS: Anion Gap 11 (12-20); Blood Urea Nitrogen 16 mg/dL (9-16); Carbon Dioxide 26 mmol/L (22-29); Chloride 110 mmol/L (96-108); Estimated Glomerular Filt Rate > 60; Glucose Random 77 mg/dL (60-115); Potassium 3.9 mmol/L (3.3-5.1); Sodium 143 mmol/L (135-145)
== END 2021-04-05 00:01 | disposition home or self-care (01) ==
LOC: HO.MMNH2L
PROVIDERS: Visit Provider Family Medicine
DX: M19.90 Unspecified osteoarthritis, unspecified site (principal); R55 Syncope and collapse
CPT/HCPCS: 36415; 80048; 85025

== ENCOUNTER 2021-05-10 00:44 | Outpatient (REF) | payer MEDICARE, MEDICAID, SELFPAY ==
[2021-05-10 06:46] LABS: MANUAL DIFF FLAG NO
[2021-05-10 06:58] LABS: Basophils Percent Auto 0.3 % (0-2); Eosinophils Absolute Auto 0.3 X10*3/uL (0.0-0.4); Hematocrit 38.2 % (37.0-47.0); Hemoglobin 12.5 g/dl (12.0-16.0); Imm Gran Abs Auto 0.02 X10*3/uL (0.00-0.03); Imm Gran Pct Auto 0.3 % (0.0-0.4); Lymphocytes Absolute Auto 2.1 X10*3/uL (1.2-4.9); Lymphocytes Percent Auto 27.5 % (20-40); Mean Corpuscular HGB Conc 32.7 g/dl (31.0-35.0); Mean Corpuscular Hemoglobin 32.6 pg (27.0-33.0); Mean Corpuscular Volume 99.5 fL (80.0-98.0); Mean Platelet Volume 11.5 fL (9.4-12.3); Monocytes Absolute Auto 0.7 X10*3/uL (0.1-1.2); Monocytes Percent Auto 9.4 % (2-11); Neutrophils Absolute Auto 4.4 x10*3/uL (2.0-8.3); Neutrophils Percent Auto 58.5 % (45-73); Platelet Count 220 X10*3/uL (160-400); Red Blood Count 3.84 X10*6/uL (4.20-5.50); Red Cell Distribution Width 12.8 % (11.0-16.0); White Blood Count 7.5 X10*3/uL (4.8-10.8)
[2021-05-10 07:27] LABS: Anion Gap 10 (12-20); Blood Urea Nitrogen 17 mg/dL (9-16); Carbon Dioxide 26 mmol/L (22-29); Chloride 109 mmol/L (96-108); Estimated Glomerular Filt Rate > 60; Glucose Random 89 mg/dL (60-115); Potassium 4.2 mmol/L (3.3-5.1); Sodium 141 mmol/L (135-145)
== END 2021-05-10 00:45 | disposition home or self-care (01) ==
LOC: HO.MMNH2L 00:44
PROVIDERS: Visit Provider Family Medicine
DX: F03.90 Unspecified dementia, unspecified severity, without behavioral disturbance, psychotic disturbance, mood disturbance, and anxiety (principal)
CPT/HCPCS: 36415; 80048; 85025

== ENCOUNTER 2021-06-03 | Outpatient (REF) | payer MEDICARE, MEDICAID, SELFPAY ==
[2021-06-03 07:39] LABS: MANUAL DIFF FLAG NO
[2021-06-03 07:48] LABS: Basophils Percent Auto 0.3 % (0-2); Eosinophils Absolute Auto 0.2 X10*3/uL (0.0-0.4); Eosinophils Percent Auto 4.2 % (0-4); Hematocrit 38.7 % (37.0-47.0); Hemoglobin 12.4 g/dl (12.0-16.0); Imm Gran Abs Auto 0.01 X10*3/uL (0.00-0.03); Imm Gran Pct Auto 0.2 % (0.0-0.4); Lymphocytes Absolute Auto 2.1 X10*3/uL (1.2-4.9); Lymphocytes Percent Auto 36.3 % (20-40); Mean Corpuscular Hemoglobin 32.4 pg (27.0-33.0); Mean Platelet Volume 11.6 fL (9.4-12.3); Monocytes Absolute Auto 0.5 X10*3/uL (0.1-1.2); Monocytes Percent Auto 8.9 % (2-11); Neutrophils Absolute Auto 2.9 x10*3/uL (2.0-8.3); Neutrophils Percent Auto 50.1 % (45-73); Platelet Count 201 X10*3/uL (160-400); Red Blood Count 3.83 X10*6/uL (4.20-5.50); Red Cell Distribution Width 13.2 % (11.0-16.0); White Blood Count 5.7 X10*3/uL (4.8-10.8)
[2021-06-03 08:07] LABS: Anion Gap 14 (12-20); Blood Urea Nitrogen 17 mg/dL (9-16); Calcium 8.8 mg/dL (8.4-10.2); Carbon Dioxide 24 mmol/L (22-29); Chloride 108 mmol/L (96-108); Estimated Glomerular Filt Rate > 60; Glucose Random 79 mg/dL (60-115); Potassium 4.2 mmol/L (3.3-5.1); Sodium 142 mmol/L (135-145)
== END 2021-06-03 00:01 | disposition home or self-care (01) ==
LOC: HO.MMNH2L
PROVIDERS: Visit Provider Family Medicine
DX: F03.90 Unspecified dementia, unspecified severity, without behavioral disturbance, psychotic disturbance, mood disturbance, and anxiety (principal)
CPT/HCPCS: 36415; 80048; 85025

== ENCOUNTER 2021-07-29 11:07 | Outpatient (REF) | payer MEDICARE, MEDICAID, SELFPAY ==
[2021-07-27 06:23] LABS: MANUAL DIFF FLAG NO
[2021-07-27 06:48] LABS: Basophils Percent Auto 0.3 % (0-2); Eosinophils Absolute Auto 0.3 X10*3/uL (0.0-0.4); Hematocrit 36.5 % (37.0-47.0); Imm Gran Abs Auto 0.02 X10*3/uL (0.00-0.03); Imm Gran Pct Auto 0.3 % (0.0-0.4); Lymphocytes Percent Auto 31.6 % (20-40); Mean Corpuscular HGB Conc 32.9 g/dl (31.0-35.0); Mean Corpuscular Hemoglobin 33.1 pg (27.0-33.0); Mean Corpuscular Volume 100.6 fL (80.0-98.0); Mean Platelet Volume 11.7 fL (9.4-12.3); Monocytes Absolute Auto 0.7 X10*3/uL (0.1-1.2); Monocytes Percent Auto 10.7 % (2-11); Neutrophils Absolute Auto 3.3 x10*3/uL (2.0-8.3); Neutrophils Percent Auto 53.1 % (45-73); Platelet Count 202 X10*3/uL (160-400); Red Blood Count 3.63 X10*6/uL (4.20-5.50); White Blood Count 6.2 X10*3/uL (4.8-10.8)
[2021-07-27 07:23] LABS: Anion Gap 13 (12-20); Blood Urea Nitrogen 16 mg/dL (9-16); Calcium 8.8 mg/dL (8.4-10.2); Carbon Dioxide 23 mmol/L (22-29); Chloride 110 mmol/L (96-108); Estimated Glomerular Filt Rate > 60; Glucose Random 79 mg/dL (60-115); Sodium 142 mmol/L (135-145)
== END 2021-07-29 11:08 | disposition home or self-care (01) ==
LOC: HO.MMNH2L 11:07
PROVIDERS: Visit Provider Family Medicine
DX: Z13.89 Encounter for screening for other disorder (principal)
CPT/HCPCS: 36415; 80048; 85025

== ENCOUNTER 2021-07-29 11:12 | Outpatient (REF) | payer MEDICARE, MEDICAID, SELFPAY ==
[2021-07-12 07:13] LABS: MANUAL DIFF FLAG NO
[2021-07-12 07:26] LABS: Basophils Percent Auto 0.4 % (0-2); Eosinophils Absolute Auto 0.2 X10*3/uL (0.0-0.4); Eosinophils Percent Auto 3.9 % (0-4); Hematocrit 37.6 % (37.0-47.0); Hemoglobin 12.6 g/dl (12.0-16.0); Imm Gran Abs Auto 0.01 X10*3/uL (0.00-0.03); Imm Gran Pct Auto 0.2 % (0.0-0.4); Lymphocytes Absolute Auto 1.9 X10*3/uL (1.2-4.9); Lymphocytes Percent Auto 35.8 % (20-40); Mean Corpuscular HGB Conc 33.5 g/dl (31.0-35.0); Mean Corpuscular Volume 98.4 fL (80.0-98.0); Mean Platelet Volume 11.3 fL (9.4-12.3); Monocytes Absolute Auto 0.5 X10*3/uL (0.1-1.2); Monocytes Percent Auto 9.1 % (2-11); Neutrophils Absolute Auto 2.6 x10*3/uL (2.0-8.3); Neutrophils Percent Auto 50.6 % (45-73); Platelet Count 230 X10*3/uL (160-400); Red Blood Count 3.82 X10*6/uL (4.20-5.50); Red Cell Distribution Width 13.2 % (11.0-16.0); White Blood Count 5.2 X10*3/uL (4.8-10.8)
[2021-07-12 08:06] LABS: Anion Gap 9 (12-20); Blood Urea Nitrogen 16 mg/dL (9-16); Calcium 8.7 mg/dL (8.4-10.2); Carbon Dioxide 27 mmol/L (22-29); Chloride 109 mmol/L (96-108); Estimated Glomerular Filt Rate > 60; Glucose Random 81 mg/dL (60-115); Potassium 3.9 mmol/L (3.3-5.1); Sodium 141 mmol/L (135-145)
== END 2021-07-29 11:13 | disposition home or self-care (01) ==
LOC: HO.MMNH2L 11:12
PROVIDERS: Visit Provider Family Medicine
DX: Z13.89 Encounter for screening for other disorder (principal)
CPT/HCPCS: 36415; 80048; 85025

== ENCOUNTER 2021-07-29 11:17 | Outpatient (REF) | payer MEDICARE, MEDICAID, SELFPAY ==
[2021-07-19 06:47] LABS: MANUAL DIFF FLAG NO
[2021-07-19 06:51] LABS: Basophils Percent Auto 0.4 % (0-2); Eosinophils Absolute Auto 0.2 X10*3/uL (0.0-0.4); Eosinophils Percent Auto 3.5 % (0-4); Hematocrit 38.8 % (37.0-47.0); Hemoglobin 12.9 g/dl (12.0-16.0); Imm Gran Abs Auto 0.01 X10*3/uL (0.00-0.03); Imm Gran Pct Auto 0.2 % (0.0-0.4); Lymphocytes Percent Auto 36.9 % (20-40); Mean Corpuscular HGB Conc 33.2 g/dl (31.0-35.0); Mean Corpuscular Volume 99.2 fL (80.0-98.0); Mean Platelet Volume 11.6 fL (9.4-12.3); Monocytes Absolute Auto 0.5 X10*3/uL (0.1-1.2); Neutrophils Absolute Auto 2.7 x10*3/uL (2.0-8.3); Platelet Count 214 X10*3/uL (160-400); Red Blood Count 3.91 X10*6/uL (4.20-5.50); Red Cell Distribution Width 13.1 % (11.0-16.0); White Blood Count 5.4 X10*3/uL (4.8-10.8)
[2021-07-19 07:16] LABS: Anion Gap 10 (12-20); Blood Urea Nitrogen 14 mg/dL (9-16); Calcium 8.9 mg/dL (8.4-10.2); Carbon Dioxide 26 mmol/L (22-29); Chloride 109 mmol/L (96-108); Estimated Glomerular Filt Rate > 60; Glucose Random 86 mg/dL (60-115); Potassium 3.9 mmol/L (3.3-5.1); Sodium 141 mmol/L (135-145)
== END 2021-07-29 11:18 | disposition home or self-care (01) ==
LOC: HO.MMNH2L 11:17
PROVIDERS: Visit Provider Family Medicine
DX: F03.90 Unspecified dementia, unspecified severity, without behavioral disturbance, psychotic disturbance, mood disturbance, and anxiety (principal)
CPT/HCPCS: 36415; 80048; 85025

== ENCOUNTER 2021-08-02 06:38 | Outpatient (REF) | payer MEDICARE, MEDICAID, SELFPAY ==
[2021-08-02 06:39] LABS: MANUAL DIFF FLAG NO
[2021-08-02 07:20] LABS: Basophils Percent Auto 0.2 % (0-2); Eosinophils Absolute Auto 0.2 X10*3/uL (0.0-0.4); Eosinophils Percent Auto 3.4 % (0-4); Hemoglobin 12.7 g/dl (12.0-16.0); Imm Gran Abs Auto 0.01 X10*3/uL (0.00-0.03); Imm Gran Pct Auto 0.2 % (0.0-0.4); Lymphocytes Absolute Auto 1.3 X10*3/uL (1.2-4.9); Lymphocytes Percent Auto 22.9 % (20-40); Mean Corpuscular HGB Conc 33.4 g/dl (31.0-35.0); Mean Corpuscular Hemoglobin 33.1 pg (27.0-33.0); Mean Platelet Volume 11.3 fL (9.4-12.3); Monocytes Percent Auto 16.7 % (2-11); Neutrophils Absolute Auto 3.3 x10*3/uL (2.0-8.3); Neutrophils Percent Auto 56.6 % (45-73); Platelet Count 203 X10*3/uL (160-400); Red Blood Count 3.84 X10*6/uL (4.20-5.50); Red Cell Distribution Width 13.1 % (11.0-16.0); White Blood Count 5.8 X10*3/uL (4.8-10.8)
[2021-08-02 07:50] LABS: Anion Gap 14 (12-20); Blood Urea Nitrogen 12 mg/dL (9-16); Calcium 8.8 mg/dL (8.4-10.2); Carbon Dioxide 24 mmol/L (22-29); Chloride 109 mmol/L (96-108); Estimated Glomerular Filt Rate > 60; Glucose Random 88 mg/dL (60-115); Potassium 3.8 mmol/L (3.3-5.1); Sodium 143 mmol/L (135-145)
== END 2021-08-02 06:39 | disposition home or self-care (01) ==
LOC: HO.MMNH2L 06:38
PROVIDERS: Visit Provider Family Medicine
DX: F03.90 Unspecified dementia, unspecified severity, without behavioral disturbance, psychotic disturbance, mood disturbance, and anxiety (principal)
CPT/HCPCS: 36415; 80048; 85025

== ENCOUNTER 2021-08-04 11:49 | Outpatient (REF) | payer MEDICARE, MEDICAID, SELFPAY ==
[2021-08-04 13:03] LABS: Alanine Aminotransferase 14 U/L (0-31); Alkaline Phosphatase 111 U/L (39-117); Aspartate Amino Transferase 14 U/L (5-31); Bilirubin Direct 0.2 mg/dL (0.0-0.5); Bilirubin Total 0.4 mg/dL (0.0-1.0); Total Protein 6.5 g/dL (6.5-8.0)
== END 2021-08-04 11:50 | disposition home or self-care (01) ==
LOC: HO.MMNH2L 11:49
PROVIDERS: Visit Provider Family Medicine
DX: U07.1 COVID-19 (principal)
CPT/HCPCS: 36415; 80076

== ENCOUNTER 2021-08-09 05:00 | Outpatient (REF) | payer MEDICARE, MEDICAID, SELFPAY | END 2021-08-09 05:01 | disposition home or self-care (01) | LOC: HO.MMNH2L 05:00 | PROVIDERS: Visit Provider Family Medicine | DX: Z13.89 Encounter for screening for other disorder (principal) ==

== ENCOUNTER 2021-09-06 06:23 | Outpatient (REF) | payer MEDICARE, MEDICAID, SELFPAY ==
[2021-09-06 06:30] LABS: MANUAL DIFF FLAG NO
[2021-09-06 06:43] LABS: Basophils Percent Auto 0.5 % (0-2); Eosinophils Absolute Auto 0.2 X10*3/uL (0.0-0.4); Eosinophils Percent Auto 4.2 % (0-4); Hematocrit 39.1 % (37.0-47.0); Hemoglobin 12.9 g/dl (12.0-16.0); Lymphocytes Absolute Auto 2.1 X10*3/uL (1.2-4.9); Lymphocytes Percent Auto 37.2 % (20-40); Mean Corpuscular Hemoglobin 33.1 pg (27.0-33.0); Mean Corpuscular Volume 100.3 fL (80.0-98.0); Mean Platelet Volume 11.6 fL (9.4-12.3); Monocytes Absolute Auto 0.5 X10*3/uL (0.1-1.2); Monocytes Percent Auto 9.4 % (2-11); Neutrophils Absolute Auto 2.8 x10*3/uL (2.0-8.3); Neutrophils Percent Auto 48.7 % (45-73); Platelet Count 201 X10*3/uL (160-400); Red Cell Distribution Width 13.1 % (11.0-16.0); White Blood Count 5.7 X10*3/uL (4.8-10.8)
[2021-09-06 07:16] LABS: Anion Gap 12 (12-20); Blood Urea Nitrogen 16 mg/dL (9-16); Carbon Dioxide 26 mmol/L (22-29); Chloride 108 mmol/L (96-108); Estimated Glomerular Filt Rate > 60; Glucose Random 85 mg/dL (60-115); Potassium 4.2 mmol/L (3.3-5.1); Sodium 142 mmol/L (135-145)
== END 2021-09-06 06:24 | disposition home or self-care (01) ==
LOC: HO.MMNH2L 06:23
PROVIDERS: Visit Provider Family Medicine
DX: F03.90 Unspecified dementia, unspecified severity, without behavioral disturbance, psychotic disturbance, mood disturbance, and anxiety (principal)
CPT/HCPCS: 36415; 80048; 85025

== ENCOUNTER 2021-10-04 06:31 | Outpatient (REF) | payer MEDICARE, MEDICAID, SELFPAY ==
[2021-10-04 06:25] LABS: MANUAL DIFF FLAG NO
[2021-10-04 07:04] LABS: Basophils Percent Auto 0.4 % (0-2); Eosinophils Absolute Auto 0.3 X10*3/uL (0.0-0.4); Eosinophils Percent Auto 4.7 % (0-4); Hematocrit 38.1 % (37.0-47.0); Hemoglobin 12.5 g/dl (12.0-16.0); Lymphocytes Absolute Auto 2.1 X10*3/uL (1.2-4.9); Lymphocytes Percent Auto 37.1 % (20-40); Mean Corpuscular HGB Conc 32.8 g/dl (31.0-35.0); Mean Corpuscular Hemoglobin 32.5 pg (27.0-33.0); Mean Platelet Volume 11.5 fL (9.4-12.3); Monocytes Absolute Auto 0.5 X10*3/uL (0.1-1.2); Monocytes Percent Auto 8.8 % (2-11); Neutrophils Absolute Auto 2.7 x10*3/uL (2.0-8.3); Platelet Count 207 X10*3/uL (160-400); Red Blood Count 3.85 X10*6/uL (4.20-5.50); Red Cell Distribution Width 13.1 % (11.0-16.0); White Blood Count 5.6 X10*3/uL (4.8-10.8)
[2021-10-04 07:27] LABS: Anion Gap 13 (12-20); Blood Urea Nitrogen 15 mg/dL (9-16); Calcium 8.6 mg/dL (8.4-10.2); Carbon Dioxide 24 mmol/L (22-29); Chloride 109 mmol/L (96-108); Estimated Glomerular Filt Rate > 60; Glucose Random 77 mg/dL (60-115); Potassium 4.3 mmol/L (3.3-5.1); Sodium 142 mmol/L (135-145)
== END 2021-10-04 06:32 | disposition home or self-care (01) ==
LOC: HO.MMNH2L 06:31
PROVIDERS: Visit Provider Family Medicine
DX: F03.90 Unspecified dementia, unspecified severity, without behavioral disturbance, psychotic disturbance, mood disturbance, and anxiety (principal)
CPT/HCPCS: 36415; 80048; 85025

== ENCOUNTER 2021-11-02 06:28 | Outpatient (REF) | payer MEDICARE, MEDICAID, SELFPAY ==
[2021-11-02 06:32] LABS: MANUAL DIFF FLAG NO
[2021-11-02 06:59] LABS: Basophils Percent Auto 0.3 % (0-2); Eosinophils Absolute Auto 0.2 X10*3/uL (0.0-0.4); Eosinophils Percent Auto 3.6 % (0-4); Hemoglobin 12.3 g/dl (12.0-16.0); Imm Gran Abs Auto 0.02 X10*3/uL (0.00-0.03); Imm Gran Pct Auto 0.3 % (0.0-0.4); Lymphocytes Absolute Auto 2.3 X10*3/uL (1.2-4.9); Lymphocytes Percent Auto 38.7 % (20-40); Mean Corpuscular HGB Conc 32.4 g/dl (31.0-35.0); Mean Corpuscular Volume 101.9 fL (80.0-98.0); Mean Platelet Volume 11.6 fL (9.4-12.3); Monocytes Absolute Auto 0.6 X10*3/uL (0.1-1.2); Monocytes Percent Auto 10.2 % (2-11); Neutrophils Absolute Auto 2.8 x10*3/uL (2.0-8.3); Neutrophils Percent Auto 46.9 % (45-73); Platelet Count 206 X10*3/uL (160-400); Red Blood Count 3.73 X10*6/uL (4.20-5.50); Red Cell Distribution Width 13.3 % (11.0-16.0); White Blood Count 6.1 X10*3/uL (4.8-10.8)
[2021-11-02 07:54] LABS: Anion Gap 16 (12-20); Blood Urea Nitrogen 18 mg/dL (9-16); Calcium 8.7 mg/dL (8.4-10.2); Carbon Dioxide 23 mmol/L (22-29); Chloride 110 mmol/L (96-108); Estimated Glomerular Filt Rate > 60; Glucose Random 80 mg/dL (60-115); Potassium 4.5 mmol/L (3.3-5.1); Sodium 144 mmol/L (135-145)
== END 2021-11-02 06:29 | disposition home or self-care (01) ==
LOC: HO.MMNH2L 06:28
PROVIDERS: Visit Provider Family Medicine
DX: F03.90 Unspecified dementia, unspecified severity, without behavioral disturbance, psychotic disturbance, mood disturbance, and anxiety (principal)
CPT/HCPCS: 36415; 80048; 85025

== ENCOUNTER 2021-11-29 07:30 | Outpatient (REF) | payer MEDICARE, MEDICAID, SELFPAY ==
[2021-11-29 07:42] LABS: Hematocrit 37.1 % (37.0-47.0); Mean Corpuscular HGB Conc 32.3 g/dl (31.0-35.0); Mean Corpuscular Hemoglobin 32.9 pg (27.0-33.0); Mean Corpuscular Volume 101.6 fL (80.0-98.0); Mean Platelet Volume 11.7 fL (9.4-12.3); Platelet Count 196 X10*3/uL (160-400); Red Blood Count 3.65 X10*6/uL (4.20-5.50); Red Cell Distribution Width 13.2 % (11.0-16.0)
[2021-11-29 08:04] LABS: Anion Gap 15 (12-20); Blood Urea Nitrogen 18 mg/dL (9-16); Calcium 8.7 mg/dL (8.4-10.2); Carbon Dioxide 24 mmol/L (22-29); Chloride 109 mmol/L (96-108); Estimated Glomerular Filt Rate > 60; Glucose Random 83 mg/dL (60-115); Sodium 144 mmol/L (135-145)
== END 2021-11-29 07:31 | disposition home or self-care (01) ==
LOC: HO.MMNH2L 07:30
PROVIDERS: Visit Provider Family Medicine
DX: R55 Syncope and collapse (principal)
CPT/HCPCS: 36415; 80048; 85027

== ENCOUNTER 2022-05-10 15:20 | Outpatient (REF) | payer MEDICARE, MEDICAID, SELFPAY ==
[2022-05-10 15:56] LABS: IDNOW Serial# 6674DD1D; Strep A Nucleic Acid Negative (Negative)
== END 2022-05-10 15:21 | disposition home or self-care (01) ==
LOC: HO.MMNH2L 15:20
PROVIDERS: Visit Provider Family Medicine
DX: Z11.2 Encounter for screening for other bacterial diseases (principal)
CPT/HCPCS: 36415; 87070; 87651

== ENCOUNTER 2022-06-15 05:59 | Outpatient (REF) | payer MEDICARE, MEDICAID, SELFPAY ==
[2022-06-15 06:01] LABS: MANUAL DIFF FLAG NO
[2022-06-15 06:26] LABS: Basophils Percent Auto 0.4 % (0-2); Eosinophils Absolute Auto 0.3 X10*3/uL (0.0-0.4); Eosinophils Percent Auto 5.6 % (0-4); Hematocrit 38.6 % (37.0-47.0); Hemoglobin 13.1 g/dl (12.0-16.0); Imm Gran Abs Auto 0.01 X10*3/uL (0.00-0.03); Imm Gran Pct Auto 0.2 % (0.0-0.4); Lymphocytes Percent Auto 39.6 % (20-40); Mean Corpuscular HGB Conc 33.9 g/dl (31.0-35.0); Mean Corpuscular Hemoglobin 34.1 pg (27.0-33.0); Mean Corpuscular Volume 100.5 fL (80.0-98.0); Mean Platelet Volume 11.2 fL (9.4-12.3); Monocytes Absolute Auto 0.7 X10*3/uL (0.1-1.2); Monocytes Percent Auto 14.1 % (2-11); Neutrophils Percent Auto 40.1 % (45-73); Platelet Count 197 X10*3/uL (160-400); Red Blood Count 3.84 X10*6/uL (4.20-5.50)
[2022-06-15 06:37] LABS: Alanine Aminotransferase 10 U/L (0-31); Albumin Level 3.6 g/dL (3.5-5.0); Alkaline Phosphatase 82 U/L (39-117); Anion Gap 13 (12-20); Aspartate Amino Transferase 13 U/L (5-31); Bilirubin Total 0.7 mg/dL (0.0-1.0); Blood Urea Nitrogen 17 mg/dL (9-16); Calcium 8.7 mg/dL (8.4-10.2); Carbon Dioxide 24 mmol/L (22-29); Chloride 108 mmol/L (96-108); Estimated Glomerular Filt Rate > 60; Glucose Random 86 mg/dL (60-115); Potassium 3.7 mmol/L (3.3-5.1); Sodium 141 mmol/L (135-145); Total Protein 5.6 g/dL (6.5-8.0)
== END 2022-06-15 06:00 | disposition home or self-care (01) ==
LOC: HO.MMNH2L 05:59
PROVIDERS: Visit Provider Family Medicine
DX: R05.9 Cough, unspecified (principal); R53.83 Other fatigue
CPT/HCPCS: 36415; 80053; 85025

== ENCOUNTER 2022-09-09 05:39 | Outpatient (REF) | payer MEDICARE, MEDICAID, SELFPAY ==
[2022-09-09 05:42] LABS: MANUAL DIFF FLAG NO
[2022-09-09 06:00] LABS: Basophils Percent Auto 0.4 % (0-2); Eosinophils Absolute Auto 0.2 X10*3/uL (0.0-0.4); Eosinophils Percent Auto 2.9 % (0-4); Hematocrit 40.2 % (37.0-47.0); Hemoglobin 13.1 g/dl (12.0-16.0); Imm Gran Abs Auto 0.01 X10*3/uL (0.00-0.03); Imm Gran Pct Auto 0.2 % (0.0-0.4); Lymphocytes Absolute Auto 1.9 X10*3/uL (1.2-4.9); Lymphocytes Percent Auto 33.9 % (20-40); Mean Corpuscular HGB Conc 32.6 g/dl (31.0-35.0); Mean Corpuscular Hemoglobin 32.9 pg (27.0-33.0); Mean Platelet Volume 11.4 fL (9.4-12.3); Monocytes Absolute Auto 0.5 X10*3/uL (0.1-1.2); Monocytes Percent Auto 9.3 % (2-11); Neutrophils Percent Auto 53.3 % (45-73); Platelet Count 195 X10*3/uL (160-400); Red Blood Count 3.98 X10*6/uL (4.20-5.50); Red Cell Distribution Width 12.7 % (11.0-16.0); White Blood Count 5.6 X10*3/uL (4.8-10.8)
[2022-09-09 06:20] LABS: Alanine Aminotransferase 8 U/L (0-31); Albumin Level 3.7 g/dL (3.5-5.0); Alkaline Phosphatase 81 U/L (39-117); Aspartate Amino Transferase 11 U/L (5-31); Bilirubin Total 0.5 mg/dL (0.0-1.0); Blood Urea Nitrogen 14 mg/dL (9-16); Calcium 9.5 mg/dL (8.4-10.2); Chloride 109 mmol/L (96-108); Estimated Glomerular Filt Rate > 60; Glucose Random 96 mg/dL (60-115); Potassium 3.9 mmol/L (3.3-5.1); Sodium 143 mmol/L (135-145); Total Protein 6.2 g/dL (6.5-8.0)
[2022-09-09 08:27] LABS: Anion Gap 14 (12-20); Carbon Dioxide 24 mmol/L (22-29)
== END 2022-09-09 05:40 | disposition home or self-care (01) ==
LOC: HO.MMNH3L 05:39
PROVIDERS: Visit Provider Family Medicine
DX: M24.159 Other articular cartilage disorders, unspecified hip (principal); M54.9 Dorsalgia, unspecified
CPT/HCPCS: 36415; 80053; 85025

== ENCOUNTER 2022-10-07 20:41 | Outpatient (REF) | payer MEDICARE, MEDICAID, SELFPAY | END 2022-10-07 20:42 | disposition home or self-care (01) | LOC: HO.MMNH3L 20:41 | PROVIDERS: Visit Provider Family Medicine | DX: R50.9 Fever, unspecified (principal) | CPT/HCPCS: 87070 ==

== ENCOUNTER 2023-09-03 17:27 | Emergency (ER) | payer MEDICARE, MEDICAID, SELFPAY ==
--- NOTE | ~2023-09-03 | CT_ITS ---
EXAMINATION: CT cervical spine wo IV con CT facial bones wo IV con CT head/brain wo IV con INDICATION INFORMATION: fall, head strike, pain COMPARISON: CT head/C-spine 12/07/2019 TECHNIQUE: Multidetector CT acquisitions of the head, maxillofacial region, and cervical spine were obtained without IV contrast. Multiplanar reformats were acquired and utilized for image interpretation. This CT examination was performed using dose optimization techniques as appropriate, variously including the following: * Automated exposure control * Adjustment of mA and/or kV according to patient size (this includes techniques or standardized protocols for targeted exams where dose is matched to indication/reason for exam; i.e. extremities or head) Use of iterative reconstruction technique DLP: 1476 mGy-cm FINDINGS: HEAD: There is no evidence of acute intracranial hemorrhage or territorial infarction. No abnormal mass-effect or midline shift is seen. Sinha to white matter differentiation is well preserved. No extra-axial fluid collections are identified. The enlarged ventricles are increased in size as compared to 2019, with bifrontal horn diameter measuring 5.8 cm (series #14 axial image 66) compared to 5.2 cm previously, and third ventricle measuring 1.7 cm (series 14 axial image 85) compared to 1.6 cm previously. Fourth ventricle is dilated as well. Proportional prominence of the ventricles and sulcal spaces is consistent with severe volume loss. Patchy periventricular and deep white matter hypoattenuation is consistent with mild small vessel ischemic changes. Small subgaleal hematoma overlying the high left frontal scalp without underlying calvarial fracture. Large right and small left mastoid effusion. MAXILLOFACIAL: No acute maxillofacial fractures are seen. The mandible, maxilla, pterygoid plates, nasal bones, zygomatic arches, paranasal sinus babb, and bony orbits are intact. The frontal, maxillary, ethmoid, and sphenoid sinuses are well aerated. The uncinate process is normal bilaterally. The infundibula and middle meati are patent. There is a leftward nasal septal deviation. The mandibular heads are well-seated in the condylar fossa. 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 Patient is edentulous. Bilateral lens extraction. The globes are intact, and there are no suspicious findings to suggest retrobulbar hemorrhage. CERVICAL SPINE: There is anatomic alignment of the vertebral bodies and posterior elements. Partial fusion of the posterior elements C4-C6 on the left side, and C2-C3 and C4-C5 on the right side. Degenerative disc disease most notable at C5-C6 and C6-C7 with loss intervertebral disc height, endplate sclerosis and marginal osteophytosis. Multilevel mild degenerative disc disease with mild loss of intervertebral disc height. There is straightening of the normal cervical lordosis with mild stepwise anterolisthesis of C4 on C5, C5 on C6 and C6 on C7. Vertebral body heights are maintained. No acute fracture or subluxation. Moderate atlantodental spondylosis. The atlantooccipital and atlantoaxial articulations are normal. The bony canal and neural foramina are maintained. There is no prevertebral soft tissue swelling. No significant soft tissue abnormality within the neck. Biapical pleural parenchymal scarring in the visualized lung apices, including calcified pleural plaque in the left lung apex. CT/CT cervical spine wo IV con IMPRESSION: 1. No acute intracranial hemorrhage or edematous territorial infarction. 2. Diffuse ventriculomegaly is more prominent as compared to prior, which can be seen with communicating hydrocephalus versus progressing global atrophy. 3. Small subgaleal hematoma overlying the high left frontal scalp without underlying calvarial fracture. 4. Large right and small left mastoid effusion. 5. No acute osseous abnormality within the maxillofacial region. 6. No acute osseous abnormality within the cervical spine. Multilevel degenerative changes as described above.
--- NOTE | ~2023-09-03 | XR_ITS ---
EXAMINATION: XR ELBOW, LEFT CLINICAL INFORMATION: pain, injury COMPARISON: Left humerus radiograph 11/28/2015 TECHNIQUE: AP, lateral, and oblique views of the left elbow. FINDINGS: The bones and soft tissues are normal. No fracture or joint effusion. Alignment is anatomic. Joint spaces are maintained. Mild enthesopathic changes off the olecranon. No radiopaque foreign body. XR/XR elbow LT min 3V IMPRESSION: No acute osseous abnormalities of the left elbow.
[2023-09-03 17:40] VITALS: BP 130/70; BP 137/52; PULSE 83; PULSE 86; RESP 16; TEMP 36.6; O2SAT 100; O2SAT 97; BMI 21.4
--- NOTE | 2023-09-03 17:50 | ED.GENADULT ---
HPI - General Adult General Chief complaint: Fall Stated complaint: FROM SNF, FALL + HEAD STRIKE, - THINNERS Time Seen by Provider: 09/03/23 17:50 Source: patient, family (patient's daughter) and EMS Mode of arrival: EMS Limitations: other (patient has a history of dementia) History of Present Illness ED Provider: Christianne Blankenship PA-C HPI narrative: Patient is an 88 year old assigned female at with a history of dementia and arthritis presenting to the emergency department today after a fall. [facility] staff states that the patient had a mechanical fall forward, hitting her head. Staff states that the patient did not have any loss of consciousness. Relieving factors: none Exacerbating factors: none Treatments prior to arrival: none Related Data Home Medications ?Medication ?Instructions ?Recorded ?Confirmed aspirin 81 mg PO DAILY 12/07/19 12/07/19 cholecalciferol (vitamin D3) 25 25 mcg PO DAILY 12/07/19 12/07/19 mcg (1,000 unit) capsule (Vitamin D3) Allergies Allergy/AdvReac Type Severity Reaction Status Date / Time No Known Allergies Allergy Verified 09/03/23 17:42 [No Known Allergies*] Review of Systems Review of Systems: Yes Other (patient has a history of dementia) Constitutional: Constitutional: Reports no additional constitutional complaints, Denies chills, Denies fever(s) and Denies night sweats Eyes: Eyes: Reports no additional eye complaints, Denies blurry vision, Denies change in vision, Denies diplopia, Denies eye discharge and Denies eye pain ENT: Comments: forehead abrasion Cardiovascular: Cardiovascular: Denies Loss of Consciousness and Denies dyspnea Respiratory: Respiratory: Denies dyspnea Musculoskeletal: Musculoskeletal: Denies deformity Comments: left elbow pain, left elbow skin tear Neurologic: Reports confusion (per patient's baseline) Psychiatric: Psychiatric: Reports confusion (per patient's baseline) Endocrine: Endocrine: Reports no additional endocrine complaints Hematologic/Lymphatic: Hematologic/Lymphatic: Reports no additional hematologic/lymphatic complaints Allergic/Immunologic: Allergic/Immunologic: Reports no additional allergic/immunologic complaints PMFSH Past Medical History Attestation statement: The following information was validated with the patient. 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 Advance Directives: Yes Advance Directives on File: Yes Advance Directives Date on File: 12/07/19 service: No Current occupational status: retired Physical Exam ED Vital Signs: Vital Signs - 24 hr 09/03/23 17:40 09/03/23 19:11 09/03/23 20:40 Temperature 97.8 F 97.9 F 97.9 F Pulse Rate 86 79 75 Respiratory Rate 16 14 12 Blood Pressure 137/52 L 109/46 L 116/54 L Pulse Oximetry 100 99 98 Oxygen Delivery Method Room Air Room Air Room Air BMI result Body Mass Index 21.4 Const General: confusion (per patient's baseline) Nutritional Appearance: well nourished Orientation/consciousness: confusion (per patient's baseline) Limitations: no limitations HENMT Other: small abrasion to the top of the scalp Head: Yes atraumatic Ears: hearing grossly normal bilaterally and external ears normal General nose exam: Normal external nose present, no nasal discharge noted and no epistaxis Face and sinus: Yes normal facial exam, No abrasion and No laceration Mouth: Normal oral and palatal mucosa present, no drooling and no muffled voice Eyes General: appearance normal, both eyes and all related structures Periorbital: periorbital findings normal Eyelids: Yes eyelids normal Conjunctivae: conjunctivae normal Pupils: Equal, round and reactive pupils present EOM: EOMs intact bilaterally Neck Neck: Yes normal visual inspection, Yes full ROM and Yes no lymphadenopathy Chest Chest palpation & inspection: normal inspection of the chest Resp Effort & Inspection: normal respiratory effort and able to speak in complete sentences GI Inspection: Yes normal to inspection Neuro General: confusion (per patient's baseline) Cranial nerves: Yes Equal, round and reactive pupils present Extrem Other: left elbow skin tear - no active bleeding General: Yes full ROM and Yes capillary refill normal Psych Appearance: grossly normal Mental Status: mental status grossly normal Affect: normal affect Attitude: cooperative Thought process: Normal thought process present Thought content: Normal thought content present Insight: Good insight present (Psych) Medications Administered Discontinued Medications Generic Name Dose Route Start Last Admin Trade Name Jonathan PRN Reason Stop Dose Admin Bacitracin 2 appl 09/03/23 21:25 09/03/23 21:46 Bacitracin Oint 0.9 Gm Packet TOPICAL 09/03/23 21:26 2 appl ONCE ONE Administration Protocol Medical Decision Making Medical Decision Making [facility] Narrative: Patient is an 88 year old assigned female at with a history of dementia and arthritis presenting to the emergency department today after a fall. Patient's physical exam was as noted in the physical exam portion of this note. Patient's blood work showed a new kidney failure but were otherwise unremarkable. Patient's EKG was unremarkable. Patient's head, c-spine, and face CT showed no acute process. Patient's left elbow x-ray showed no acute process. I explained my physical exam findings as well as all test results to the patient and the patient's daughter. I answered all questions asked by the patient and the patient's daughter. I reaffirmed with the patient's daughter, who is her healthcare proxy, that the patient is not to be dialyzed. I consulted with my attending physician, Dr. Guy who affirmed it was appropriate to discharge the patient back to her SNF given there is nothing to be done for her current kidney status. I stressed the importance of the patient taking her medication as directed (either prescribed or as the over the counter packaging recommends). I stressed the importance of the patient following up with her primary care provider. I stressed the importance of the patient returning to the emergency department immediately if she were to develop any dizziness, shortness of breath, difficulty breathing, chest pain, blurry vision, loss of vision, nausea, vomiting, abdominal pain, fever, chills, back pain, or any other complaints. Patient's daughter verbalized agreement and understanding with this treatment plan and discharge back to [facility]. Differential Diagnosis Differential Diagnoses: The differential diagnosis associated with the presentation includes Mechanical fall Acute kidney failure Admission/Observation Consideration of admission/observation: Escalation of care including admission/observation considered Patient would have been admitted to the hospital had her work up had any findings where hospital admission was appropriate and her clinical presentation warranted hospital admission. Lab Data [facility] Lab Attestation statement: I reviewed the patient's lab results. My interpretation of these results are in the [facility] Rationale portion of this note. 09/03/23 19:31 09/03/23 19:31 Labs: Lab Results 09/03/23 Range/Units 19:31 WBC 8.0 (4.8-10.8) X10*3/uL RBC 2.87 L D (4.20-5.50) X10*6/uL Hgb 9.8 L D (12.0-16.0) g/dl Hct 28.6 L D (37.0-47.0) % MCV 99.7 H (80.0-98.0) fL MCH 34.1 H (27.0-33.0) pg MCHC 34.3 (31.0-35.0) g/dl RDW 14.0 (11.0-16.0) % Plt Count 295 D (160-400) X10*3/uL MPV 10.6 (9.4-12.3) fL Immature Gran % (Auto) 0.2 (0.0-0.4) % Neut % (Auto) 78.5 H (45-73) % Lymph % (Auto) 9.7 L (20-40) % [place] % (Auto) 11.0 (2-11) % Eos % (Auto) 0.4 (0-4) % Baso % (Auto) 0.2 (0-2) % Lymph # (Auto) 0.8 L (1.2-4.9) X10*3/uL [place] # (Auto) 0.9 (0.1-1.2) X10*3/uL Eos # (Auto) 0.0 (0.0-0.4) X10*3/uL Baso # (Auto) 0.0 (0.0-0.2) X10*3/uL Abs Immat Gran (auto) 0.02 (0.00-0.03) X10*3/uL Absolute Neuts (auto) 6.3 (2.0-8.3) x10*3/uL Absolute Nucleated RBC 0.000 (0.0-0.012) X10*3/uL Nucleated RBC % (auto) 0.0 (0.0-0.2) /100WBC PT 10.9 L (11.1-13.3) SEC INR 0.9 (0.9-1.1) APTT 30.2 (26.0-36.8) SEC Sodium 139 (135-145) mmol/L Potassium 3.9 (3.3-5.1) mmol/L Chloride 107 (96-108) mmol/L Carbon Dioxide 15 L (22-29) mmol/L Anion Gap 21 H (12-20) BUN 86 H (9-16) mg/dL Creatinine 6.14 H* (0.5-1.4) mg/dL Estim Creat Clear Calc 4.7 Estimated GFR 6 Random Glucose 119 H (60-115) mg/dL Calcium 8.7 D (8.4-10.2) mg/dL Magnesium 2.6 (1.6-2.6) mg/dL Total Bilirubin 0.4 (0.0-1.0) mg/dL AST 8 (5-31) U/L ALT 7 (0-31) U/L Alkaline Phosphatase 114 (39-117) U/L Total Protein 6.5 (6.5-8.0) g/dL Albumin 3.5 (3.5-5.0) g/dL Influenza Type A (PCR) NEGATIVE (Negative) Influenza Type B (PCR) NEGATIVE (Negative) RSV RNA Qual (PCR) NEGATIVE (Negative) SARS-CoV-2 RNA (RT-PCR) NEGATIVE (Negative) Independent Interpretation I performed an independent interpretation of an: EKG, Plain X-Ray and CT Scan Interpretation: My interpretation is in agreement with the radiologist's impression of these imaging studies. EXAMINATION: CT cervical spine wo IV con CT facial bones wo IV con CT head/brain wo IV con INDICATION INFORMATION: fall, head strike, pain COMPARISON: CT head/C-spine 12/07/2019 TECHNIQUE: Multidetector CT acquisitions of the head, maxillofacial region, and cervical spine were obtained without IV contrast. Multiplanar reformats were acquired and utilized for image interpretation. This CT examination was performed using dose optimization techniques as appropriate, variously including the following: * Automated exposure control * Adjustment of mA and/or kV according to patient size (this includes techniques or standardized protocols for targeted exams where dose is matched to indication/reason for exam; i.e. extremities or head) Use of iterative reconstruction technique DLP: 1476 mGy-cm FINDINGS: HEAD: There is no evidence of acute intracranial hemorrhage or territorial infarction. No abnormal mass-effect or midline shift is seen. Sinha to white matter differentiation is well preserved. No extra-axial fluid collections are identified. The enlarged ventricles are increased in size as compared to 2020, with bifrontal horn diameter measuring 5.8 cm (series #14 axial image 66) compared to 5.2 cm previously, and third ventricle measuring 1.7 cm (series 14 axial image 85) compared to 1.6 cm previously. Fourth ventricle is dilated as well. Proportional prominence of the ventricles and sulcal spaces is consistent with severe volume loss. Patchy periventricular and deep white matter hypoattenuation is consistent with mild small vessel ischemic changes. Small subgaleal hematoma overlying the high left frontal scalp without underlying calvarial fracture. Large right and small left mastoid effusion. MAXILLOFACIAL: No acute maxillofacial fractures are seen. The mandible, maxilla, pterygoid plates, nasal bones, zygomatic arches, paranasal sinus babb, and bony orbits are intact. The frontal, maxillary, ethmoid, and sphenoid sinuses are well aerated. The uncinate process is normal bilaterally. The infundibula and middle meati are patent. There is a leftward nasal septal deviation. The mandibular heads are well-seated in the condylar fossa. 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 Patient is edentulous. Bilateral lens extraction. The globes are intact, and there are no suspicious findings to suggest retrobulbar hemorrhage. CERVICAL SPINE: There is anatomic alignment of the vertebral bodies and posterior elements. Partial fusion of the posterior elements C4-C6 on the left side, and C2-C3 and C4-C5 on the right side. Degenerative disc disease most notable at C5-C6 and C6-C7 with loss intervertebral disc height, endplate sclerosis and marginal osteophytosis. Multilevel mild degenerative disc disease with mild loss of intervertebral disc height. There is straightening of the normal cervical lordosis with mild stepwise anterolisthesis of C4 on C5, C5 on C6 and C6 on C7. Vertebral body heights are maintained. No acute fracture or subluxation. Moderate atlantodental spondylosis. The atlantooccipital and atlantoaxial articulations are normal. The bony canal and neural foramina are maintained. There is no prevertebral soft tissue swelling. No significant soft tissue abnormality within the neck. Biapical pleural parenchymal scarring in the visualized lung apices, including calcified pleural plaque in the left lung apex. CT/CT cervical spine wo IV con IMPRESSION: 1. No acute intracranial hemorrhage or edematous territorial infarction. 2. Diffuse ventriculomegaly is more prominent as compared to prior, which can be seen with communicating hydrocephalus versus progressing global atrophy. 3. Small subgaleal hematoma overlying the high left frontal scalp without underlying calvarial fracture. 4. Large right and small left mastoid effusion. 5. No acute osseous abnormality within the maxillofacial region. 6. No acute osseous abnormality within the cervical spine. Multilevel degenerative changes as described above. Dictated By: Saritha Dixon Signed By: Electronically signed by Saritha Dixon 09/03/232010 EXAMINATION: XR ELBOW, LEFT CLINICAL INFORMATION: pain, injury COMPARISON: Left humerus radiograph 11/28/2015 TECHNIQUE: AP, lateral, and oblique views of the left elbow. FINDINGS: The bones and soft tissues are normal. No fracture or joint effusion. Alignment is anatomic. Joint spaces are maintained. Mild enthesopathic changes off the olecranon. No radiopaque foreign body. XR/XR elbow LT min 3V IMPRESSION: No acute osseous abnormalities of the left elbow. Dictated By: Saritha Dixon Signed By: Electronically signed by Saritha Dixon 09/03/23 1073 Radiology Impression Discussion of test interpretation with radiology: I have reviewed the radiologist's reading. Independent Historian Clinical information obtained from an independent historian. History obtained from or confirmed by: EMS (EMS provided additional history and confirmed the history provided by the [facility] staff) and Other (patient's daughter provided additional history and confirmed the history provided by EMS and [facility] staff.) Discharge Plan Discharge Clinical Impression: Fall, Acute kidney failure Patient Disposition: [facility] Transfer Details: Back to [facility]. Instructions: Acute Kidney Injury (DC), Fall Prevention for Older Adults (ED) Additional Instructions: Your lab work today shows your kidneys are failing. You have elected not to receive dialysis - therefore there is nothing further to be done at this time. Follow up with your primary care provider. Return to the emergency department immediately if your symptoms worsen or if you develop any dizziness, shortness of breath, difficulty breathing, chest pain, blurry vision, loss of vision, nausea, vomiting, abdominal pain, fever, chills, back pain, or any other complaints. Prescriptions: No Action aspirin 81 mg PO DAILY cholecalciferol (vitamin D3) [Vitamin D3] 25 mcg (1,000 unit) Capsule 25 mcg PO DAILY Print Language: Turkish
[2023-09-03 19:11] VITALS: BP 109/46; PULSE 79; RESP 14; TEMP 36.6; O2SAT 99
[2023-09-03 19:55] LABS: MANUAL DIFF FLAG NO
[2023-09-03 19:56] LABS: Basophils Percent Auto 0.2 % (0-2); Eosinophils Percent Auto 0.4 % (0-4); Hematocrit 28.6 % (37.0-47.0); Hemoglobin 9.8 g/dl (12.0-16.0); Imm Gran Abs Auto 0.02 X10*3/uL (0.00-0.03); Imm Gran Pct Auto 0.2 % (0.0-0.4); Lymphocytes Absolute Auto 0.8 X10*3/uL (1.2-4.9); Lymphocytes Percent Auto 9.7 % (20-40); Mean Corpuscular HGB Conc 34.3 g/dl (31.0-35.0); Mean Corpuscular Hemoglobin 34.1 pg (27.0-33.0); Mean Corpuscular Volume 99.7 fL (80.0-98.0); Mean Platelet Volume 10.6 fL (9.4-12.3); Monocytes Absolute Auto 0.9 X10*3/uL (0.1-1.2); Neutrophils Absolute Auto 6.3 x10*3/uL (2.0-8.3); Neutrophils Percent Auto 78.5 % (45-73); Platelet Count 295 X10*3/uL (160-400); Red Blood Count 2.87 X10*6/uL (4.20-5.50)
[2023-09-03 20:01] LABS: INTERNATIONAL NORM RATIO 0.9 (0.9-1.1); Prothrombin Time 10.9 SEC (11.1-13.3)
[2023-09-03 20:04] LABS: Partial Thromboplastin Time 30.2 SEC (26.0-36.8)
--- NOTE | 2023-09-03 20:16 | ECG_ITS ---
Test Reason : FALL Blood Pressure : / mmHG Vent. Rate : 075 BPM Atrial Rate : 075 BPM P-R Int : 160 ms QRS Dur : 092 ms QT Int : 416 ms P-R-T Axes : 066 -10 072 degrees QTc Int : 464 ms Normal sinus rhythm Septal infarct , age undetermined Abnormal ECG When compared with ECG of 25-JUL-2020 20:43, Septal infarct is now Present Nonspecific T wave abnormality no longer evident in Inferior leads Nonspecific T wave abnormality, improved in Anterolateral leads Referred By: Christianne Blankenship Electronically Signed By:Hugh Menchaca
[2023-09-03 20:35] LABS: Influenza A PCR NEGATIVE (Negative); Influenza B PCR NEGATIVE (Negative); Resp Syncy Virus RNA Qual PCR NEGATIVE (Negative); SARS COV2 PCR INHOUSE NEGATIVE (Negative)
[2023-09-03 20:40] VITALS: BP 116/54; PULSE 75; RESP 12; TEMP 36.6; O2SAT 98
[2023-09-03 20:47] LABS: Alanine Aminotransferase 7 U/L (0-31); Albumin Level 3.5 g/dL (3.5-5.0); Alkaline Phosphatase 114 U/L (39-117); Anion Gap 21 (12-20); Aspartate Amino Transferase 8 U/L (5-31); Bilirubin Total 0.4 mg/dL (0.0-1.0); Blood Urea Nitrogen 86 mg/dL (9-16); Calcium 8.7 mg/dL (8.4-10.2); Carbon Dioxide 15 mmol/L (22-29); Chloride 107 mmol/L (96-108); Creatinine Clr Calc Pharmacy 4.7; Estimated Glomerular Filt Rate 6; Glucose Random 119 mg/dL (60-115); Magnesium 2.6 mg/dL (1.6-2.6); Potassium 3.9 mmol/L (3.3-5.1); Sodium 139 mmol/L (135-145); Total Protein 6.5 g/dL (6.5-8.0)
[2023-09-03] MEDS: Bacitracin Oint 0.9 GM PACKET 2 APPL TOPICAL (21:46)
--- NOTE | 2023-09-03 21:53 | PC.NURSE ---
Bacitracin applied to left elbow skin tear. Dressing applied. Pt tolerated well. Pending left elbow x-ray. Monitoring is ongoing.
--- NOTE | 2023-09-04 00:27 | PC.NURSE ---
Nursing report provided to Isabel at [facility]. Pt is in transit via ambulance.
[2023-09-04 00:29] VITALS: BP 112/56; PULSE 69; RESP 12; TEMP 36.6; O2SAT 99
[2023-09-04 00:31] VITALS: BP 112/56; PULSE 69; RESP 12; TEMP 36.6; O2SAT 99
== END 2023-09-04 00:33 | disposition skilled nursing facility (03) ==
PROVIDERS: Physician Assistant Medical; Emergency Provider Emergency Medicine Emergency Medical Services; PCP Family Medicine
DX: N17.9 Acute kidney failure, unspecified (principal); S09.90XA Unspecified injury of head, initial encounter; W19.XXXA Unspecified fall, initial encounter; Y93.9 Activity, unspecified; Y92.9 Unspecified place or not applicable; Y99.9 Unspecified external cause status; F03.90 Unspecified dementia, unspecified severity, without behavioral disturbance, psychotic disturbance, mood disturbance, and anxiety; M19.90 Unspecified osteoarthritis, unspecified site; Z03.818 Encounter for observation for suspected exposure to other biological agents ruled out
CPT/HCPCS: 0241U; 70450; 70486; 72125; 73080; 80053; 83735; 85025; 85610; 85730; 93005; 99284

== ENCOUNTER → 2023-09-03 20:16 | Outpatient (BNV) | payer MEDICARE, MEDICAID, SELFPAY | PROVIDERS: Emergency Provider Emergency Medicine Emergency Medical Services; PCP Family Medicine; Visit Provider Internal Medicine Cardiovascular Disease | DX: R94.31 Abnormal electrocardiogram [ECG] [EKG] (principal) | CPT/HCPCS: 93010 ==

== ENCOUNTER 2023-09-05 06:14 | Outpatient (REF) | payer MEDICARE, MEDICAID, SELFPAY ==
[2023-09-05 06:16] LABS: MANUAL DIFF FLAG NO
[2023-09-05 06:28] LABS: Basophils Percent Auto 0.3 % (0-2); Eosinophils Absolute Auto 0.1 X10*3/uL (0.0-0.4); Eosinophils Percent Auto 1.2 % (0-4); Hematocrit 27.4 % (37.0-47.0); Hemoglobin 9.1 g/dl (12.0-16.0); Imm Gran Abs Auto 0.02 X10*3/uL (0.00-0.03); Imm Gran Pct Auto 0.3 % (0.0-0.4); Mean Corpuscular HGB Conc 33.2 g/dl (31.0-35.0); Mean Corpuscular Hemoglobin 33.5 pg (27.0-33.0); Mean Corpuscular Volume 100.7 fL (80.0-98.0); Monocytes Absolute Auto 0.7 X10*3/uL (0.1-1.2); Monocytes Percent Auto 10.5 % (2-11); Neutrophils Absolute Auto 4.6 x10*3/uL (2.0-8.3); Neutrophils Percent Auto 71.7 % (45-73); Platelet Count 306 X10*3/uL (160-400); Red Blood Count 2.72 X10*6/uL (4.20-5.50); Red Cell Distribution Width 14.3 % (11.0-16.0); White Blood Count 6.5 X10*3/uL (4.8-10.8)
[2023-09-05 06:48] LABS: Anion Gap 18 (12-20); Blood Urea Nitrogen 73 mg/dL (9-16); Calcium 8.9 mg/dL (8.4-10.2); Carbon Dioxide 16 mmol/L (22-29); Chloride 110 mmol/L (96-108); Estimated Glomerular Filt Rate 7; Glucose Random 84 mg/dL (60-115); Potassium 3.6 mmol/L (3.3-5.1); Sodium 140 mmol/L (135-145)
== END 2023-09-05 06:15 | disposition home or self-care (01) ==
LOC: HO.MMNH3L 06:14
PROVIDERS: Visit Provider Family Medicine
DX: R55 Syncope and collapse (principal); Z91.81 History of falling
CPT/HCPCS: 36415; 80048; 85025